=== PATIENT | male | born 1940 | race Caucasian/White ===

== ENCOUNTER 2017-06-21 11:30 | Inpatient (IN) | payer MEDICARE ==
[2017-06-21] MEDS: SOD CHLORIDE 0.9% 500 ML IV (11:32)
[2017-06-21] MEDS: morphine 2 MG INJ IV (12:44)
[2017-06-21] MEDS: ONDANSETRON 4 MG INJ IV (12:44)
[2017-06-21 12:49] LABS: ADD MAN DIFF? NO
[2017-06-21 12:50] LABS: WHITE BLOOD COUNT 9.6 10^3/ul (4.8-10.8)
[2017-06-21 12:50] LABS: BASOPHIL # 0.1 10^3/ul (0.0-0.1); BASOPHILS % 0.5 % (0.0-2.0); EOSINOPHILS # 0.2 10^3/ul (0.0-0.5); EOSINOPHILS % 1.9 % (0.0-7.0); HEMATOCRIT 37.6 % (42.0-52.0); HEMOGLOBIN 12.9 g/dl (14.0-18.0); LYMPHOCYTES # 1.5 10^3/ul (0.8-2.9); LYMPHOCYTES % 15.7 % (15.0-51.0); MEAN CORPUSCULAR HEMOGLOBIN 32.7 pg (29.0-33.0); MEAN CORPUSCULAR HGB CONC 34.3 g/dl (32.0-37.0); MEAN CORPUSCULAR VOLUME 95.2 fl (82.0-101.0); MEAN PLATELET VOLUME 10.5 fl (7.4-10.4); MONOCYTE # 0.9 10^3/ul (0.3-0.9); MONOCYTES % 9.1 % (0.0-11.0); NEUTROPHILS % 72.4 % (39.0-77.0); PLATELET COUNT 221 10^3/UL (140-415); RED BLOOD COUNT 3.95 10^6/ul (4.70-6.10); RED CELL DISTRIBUTION WIDTH 13.7 % (11.5-14.5)
[2017-06-21 13:06] LABS: ANION GAP 21 (8-16); BLOOD UREA NITROGEN 21 mg/dl (7-20); CALCIUM 9.5 mg/dl (8.4-10.2); CARBON DIOXIDE 20 mmol/L (21-31); CHLORIDE 104 mmol/L (97-110); CREATININE 1.34 mg/dl (0.61-1.24); GLUCOSE 121 mg/dl (70-220); POTASSIUM 4.1 mmol/L (3.5-5.1); SODIUM 141 mmol/L (135-144)
[2017-06-21 13:19] LABS: INR 0.99; PROTIME 13.2 Sec (11.9-14.9)
[2017-06-21 13:20] LABS: PARTIAL THROMBOPLASTIN TIME 28.6 Sec (25.0-35.0)
[2017-06-21] MEDS ORDERED: ONDANSETRON 4 MG INJ IV ×2 (13:30→18:00)
[2017-06-21] MEDS ORDERED: ACETAMINOPHEN 325 MG TAB PO ×2 (13:30→18:00)
[2017-06-21] MEDS ORDERED: MAGNESIUM HYDROXIDE 30ML CUP PO ×2 (18:00)
[2017-06-21] MEDS ORDERED: DOCUSATE SODIUM 100 MG CAP PO (18:00)
[2017-06-21] MEDS ORDERED: NACL 0.9% 3 ML SYG IV (18:00)
[2017-06-21] MEDS: ATORVASTATIN 80 MG TAB PO (22:41)
[2017-06-21] MEDS: FERROUS SULFATE (EC) 325 MG TAB PO (22:41)
[2017-06-22 04:46] LABS: ADD UMIC YES; UR ASCORBIC ACID NEGATIVE (NEGATIVE); UR BILIRUBIN (Dip) NEGATIVE (NEGATIVE); UR BLOOD (Dip) 2+ mg/dL (NEGATIVE); UR CLARITY SLIGHTLY CLOUDY (CLEAR); UR COLOR YELLOW (YELLOW); UR GLUCOSE (Dip) NEGATIVE (NEGATIVE); UR KETONES (Dip) NEGATIVE (NEGATIVE); UR LEUKOCYTE ESTERASE (Dip) NEGATIVE Leu/ul (NEGATIVE); UR NITRITE (Dip) NEGATIVE (NEGATIVE); UR RBC 0 /HPF (0-5); UR SPECIFIC GRAVITY (Dip) 1.014 (1.003-1.030); UR TOTAL PROTEIN (Dip) NEGATIVE (NEGATIVE); UR UROBILINOGEN (Dip) NEGATIVE (NEGATIVE); UR WBC 2 /HPF (0-5)
[2017-06-22 06:07] LABS: ADD MAN DIFF? NO
[2017-06-22 06:13] LABS: WHITE BLOOD COUNT 12.5 10^3/ul (4.8-10.8)
[2017-06-22 06:13] LABS: ABNORMAL IP MESSAGE 1; BASOPHILS % 0.2 % (0.0-2.0); HEMATOCRIT 31.1 % (42.0-52.0); HEMOGLOBIN 10.8 g/dl (14.0-18.0); LYMPHOCYTES % 8.1 % (15.0-51.0); MEAN CORPUSCULAR HEMOGLOBIN 32.5 pg (29.0-33.0); MEAN CORPUSCULAR HGB CONC 34.7 g/dl (32.0-37.0); MEAN CORPUSCULAR VOLUME 93.7 fl (82.0-101.0); MEAN PLATELET VOLUME 11.5 fl (7.4-10.4); MONOCYTE # 1.6 10^3/ul (0.3-0.9); MONOCYTES % 12.5 % (0.0-11.0); NEUTROPHIL # 9.9 10^3/ul (1.6-7.5); NEUTROPHILS % 78.9 % (39.0-77.0); PLATELET COUNT 195 10^3/UL (140-415); POSITIVE DIFF @See below; RED BLOOD COUNT 3.32 10^6/ul (4.70-6.10); RED CELL DISTRIBUTION WIDTH 14.2 % (11.5-14.5)
[2017-06-22] MEDS: PANTOPRAZOLE (EC) 40 MG TAB PO (06:24)
[2017-06-22] MEDS ORDERED: PANTOPRAZOLE (EC) 40 MG TAB PO (07:00)
[2017-06-22 07:07] LABS: ALANINE AMINOTRANSFERASE 42 IU/L (13-69); ALBUMIN 3.9 g/dl (3.3-4.9); ALBUMIN/GLOBULIN RATIO 1.39; ALKALINE PHOSPHATASE 93 IU/L (42-121); ANION GAP 19 (8-16); ASPARTATE AMINO TRANSFERASE 108 IU/L (15-46); BILIRUBIN,INDIRECT 0.4 mg/dl (0-1.1); BILIRUBIN,TOTAL 0.4 mg/dl (0.2-1.3); BLOOD UREA NITROGEN 24 mg/dl (7-20); CALCIUM 9.2 mg/dl (8.4-10.2); CARBON DIOXIDE 21 mmol/L (21-31); CHLORIDE 107 mmol/L (97-110); CHOL/HDL RATIO 2.5 RATIO; CHOLESTEROL 119 mg/dl (100-200); CREATININE 1.26 mg/dl (0.61-1.24); GLUCOSE 121 mg/dl (70-220); HDL CHOLESTEROL 47 mg/dl (31-75); LDL CHOLESTEROL,CALCULATED 59 mg/dl; SODIUM 143 mmol/L (135-144); TOTAL PROTEIN 6.7 g/dl (6.1-8.1); TRIGLYCERIDES 63 mg/dl (0-149)
[2017-06-22] MEDS: MULTIVITAMINS THERAPEUTIC TAB PO (08:47)
[2017-06-22] MEDS: FERROUS SULFATE (EC) 325 MG TAB PO ×2 (08:47→20:34)
[2017-06-22] MEDS: LISINOPRIL 10 MG TAB PO (08:48)
[2017-06-22] MEDS: ESCITALOPRAM 10 MG TAB PO (08:48)
[2017-06-22] MEDS: AMLODIPINE 5 MG TAB PO (08:49)
[2017-06-22] MEDS: ENOXAPARIN 40 MG/0.4 ML SYG SC (08:53)
[2017-06-22] MEDS: METOPROLOL 25 MG TAB PO ×2 (13:29→20:33)
[2017-06-22] MEDS: ATORVASTATIN 80 MG TAB PO (20:34)
[2017-06-23 05:57] LABS: ABNORMAL IP MESSAGE 1; HEMATOCRIT 26.9 % (42.0-52.0); HEMOGLOBIN 9.4 g/dl (14.0-18.0); MEAN CORPUSCULAR HEMOGLOBIN 32.9 pg (29.0-33.0); MEAN CORPUSCULAR HGB CONC 34.9 g/dl (32.0-37.0); MEAN CORPUSCULAR VOLUME 94.1 fl (82.0-101.0); MEAN PLATELET VOLUME 11.6 fl (7.4-10.4); PLATELET COUNT 159 10^3/UL (140-415); POSITIVE DIFF @See below; RED BLOOD COUNT 2.86 10^6/ul (4.70-6.10); RED CELL DISTRIBUTION WIDTH 14.5 % (11.5-14.5)
[2017-06-23 06:16] LABS: ANION GAP 18 (8-16); BLOOD UREA NITROGEN 39 mg/dl (7-20); CALCIUM 8.8 mg/dl (8.4-10.2); CARBON DIOXIDE 23 mmol/L (21-31); CHLORIDE 104 mmol/L (97-110); CREATININE 1.49 mg/dl (0.61-1.24); GLUCOSE 111 mg/dl (70-220); MAGNESIUM 1.9 mg/dl (1.7-2.5); PHOSPHORUS 4.3 mg/dl (2.5-4.9); POTASSIUM 3.7 mmol/L (3.5-5.1); SODIUM 141 mmol/L (135-144)
[2017-06-23] MEDS: PANTOPRAZOLE (EC) 40 MG TAB PO (06:25)
[2017-06-23 07:32] LABS: ADD MAN DIFF? NO
[2017-06-23 07:33] LABS: BASOPHILS % 0.1 % (0.0-2.0); LYMPHOCYTES % 9.5 % (15.0-51.0); MONOCYTES % 17.3 % (0.0-11.0); NEUTROPHILS % 72.7 % (39.0-77.0)
[2017-06-23] MEDS: ENOXAPARIN 40 MG/0.4 ML SYG SC (08:23)
[2017-06-23] MEDS: FERROUS SULFATE (EC) 325 MG TAB PO ×2 (09:37→20:32)
[2017-06-23] MEDS: ESCITALOPRAM 10 MG TAB PO (09:38)
[2017-06-23] MEDS: AMLODIPINE 5 MG TAB PO (09:39)
[2017-06-23] MEDS: MULTIVITAMINS THERAPEUTIC TAB PO (09:39)
[2017-06-23] MEDS: LISINOPRIL 10 MG TAB PO (09:39)
[2017-06-23] MEDS: METOPROLOL 25 MG TAB PO ×2 (09:39→20:32)
[2017-06-23] MEDS: ATORVASTATIN 80 MG TAB PO (20:32)
[2017-06-24 05:32] LABS: ADD MAN DIFF? NO
[2017-06-24 05:33] LABS: ABNORMAL IP MESSAGE 1; BASOPHILS % 0.1 % (0.0-2.0); HEMATOCRIT 26.5 % (42.0-52.0); HEMOGLOBIN 9.2 g/dl (14.0-18.0); LYMPHOCYTES # 1.3 10^3/ul (0.8-2.9); LYMPHOCYTES % 9.3 % (15.0-51.0); MEAN CORPUSCULAR HEMOGLOBIN 32.5 pg (29.0-33.0); MEAN CORPUSCULAR HGB CONC 34.7 g/dl (32.0-37.0); MEAN CORPUSCULAR VOLUME 93.6 fl (82.0-101.0); MEAN PLATELET VOLUME 11.5 fl (7.4-10.4); MONOCYTES % 14.5 % (0.0-11.0); NEUTROPHIL # 10.2 10^3/ul (1.6-7.5); NEUTROPHILS % 75.9 % (39.0-77.0); PLATELET COUNT 141 10^3/UL (140-415); POSITIVE DIFF @See below; RED BLOOD COUNT 2.83 10^6/ul (4.70-6.10); RED CELL DISTRIBUTION WIDTH 14.3 % (11.5-14.5)
[2017-06-24 05:33] LABS: WHITE BLOOD COUNT 13.5 10^3/ul (4.8-10.8)
[2017-06-24] MEDS: PANTOPRAZOLE (EC) 40 MG TAB PO (05:43)
[2017-06-24 06:11] LABS: ANION GAP 16 (8-16); BLOOD UREA NITROGEN 47 mg/dl (7-20); CALCIUM 8.6 mg/dl (8.4-10.2); CARBON DIOXIDE 25 mmol/L (21-31); CHLORIDE 102 mmol/L (97-110); CREATININE 1.49 mg/dl (0.61-1.24); GLUCOSE 102 mg/dl (70-220); PHOSPHORUS 4.3 mg/dl (2.5-4.9); POTASSIUM 3.7 mmol/L (3.5-5.1); SODIUM 139 mmol/L (135-144)
[2017-06-24] MEDS: METOPROLOL 25 MG TAB PO ×2 (09:37→21:00)
[2017-06-24] MEDS: ESCITALOPRAM 10 MG TAB PO (09:37)
[2017-06-24] MEDS: FERROUS SULFATE (EC) 325 MG TAB PO ×2 (09:37→20:54)
[2017-06-24] MEDS: MULTIVITAMINS THERAPEUTIC TAB PO (09:37)
[2017-06-24] MEDS: LISINOPRIL 10 MG TAB PO (09:38)
[2017-06-24] MEDS: AMLODIPINE 5 MG TAB PO (09:38)
[2017-06-24] MEDS: ACETAMINOPHEN 325 MG TAB PO (09:38)
[2017-06-24] MEDS: ENOXAPARIN 40 MG/0.4 ML SYG SC (09:39)
[2017-06-24] MEDS: ATORVASTATIN 80 MG TAB PO (20:54)
[2017-06-25] MEDS: HYDROCODONE/APAP (5/325) TAB PO (00:11)
[2017-06-25] MEDS: METOPROLOL 25 MG TAB PO ×3 (00:12→21:02)
[2017-06-25] MEDS: PANTOPRAZOLE (EC) 40 MG TAB PO (05:56)
[2017-06-25] MEDS: FERROUS SULFATE (EC) 325 MG TAB PO ×2 (08:56→21:02)
[2017-06-25] MEDS: ESCITALOPRAM 10 MG TAB PO (08:57)
[2017-06-25] MEDS: AMLODIPINE 5 MG TAB PO (08:58)
[2017-06-25] MEDS: MULTIVITAMINS THERAPEUTIC TAB PO (08:58)
[2017-06-25] MEDS: LISINOPRIL 10 MG TAB PO (08:59)
[2017-06-25] MEDS: ENOXAPARIN 40 MG/0.4 ML SYG SC (09:01)
[2017-06-25] MEDS: morphine 2 MG INJ IV (12:45)
[2017-06-25] MEDS: ATORVASTATIN 80 MG TAB PO (21:01)
[2017-06-26 05:16] LABS: ADD MAN DIFF? NO
[2017-06-26 05:26] LABS: WHITE BLOOD COUNT 11.5 10^3/ul (4.8-10.8)
[2017-06-26 05:26] LABS: BASOPHILS % 0.1 % (0.0-2.0); EOSINOPHILS % 0.1 % (0.0-7.0); HEMATOCRIT 25.9 % (42.0-52.0); HEMOGLOBIN 8.9 g/dl (14.0-18.0); LYMPHOCYTES % 8.4 % (15.0-51.0); MEAN CORPUSCULAR HEMOGLOBIN 32.4 pg (29.0-33.0); MEAN CORPUSCULAR HGB CONC 34.4 g/dl (32.0-37.0); MEAN CORPUSCULAR VOLUME 94.2 fl (82.0-101.0); MEAN PLATELET VOLUME 12.2 fl (7.4-10.4); MONOCYTE # 1.4 10^3/ul (0.3-0.9); MONOCYTES % 12.4 % (0.0-11.0); NEUTROPHILS % 78.6 % (39.0-77.0); PLATELET COUNT 189 10^3/UL (140-415); RED BLOOD COUNT 2.75 10^6/ul (4.70-6.10); RED CELL DISTRIBUTION WIDTH 14.5 % (11.5-14.5)
[2017-06-26] MEDS: PANTOPRAZOLE (EC) 40 MG TAB PO (05:39)
[2017-06-26] MEDS: HYDROCODONE/APAP (5/325) TAB PO ×2 (05:40→12:33)
[2017-06-26 05:51] LABS: ANION GAP 17 (8-16); BLOOD UREA NITROGEN 48 mg/dl (7-20); CALCIUM 8.4 mg/dl (8.4-10.2); CARBON DIOXIDE 22 mmol/L (21-31); CHLORIDE 104 mmol/L (97-110); CREATININE 1.41 mg/dl (0.61-1.24); GLUCOSE 96 mg/dl (70-220); MAGNESIUM 2.3 mg/dl (1.7-2.5); PHOSPHORUS 3.4 mg/dl (2.5-4.9); POTASSIUM 3.4 mmol/L (3.5-5.1); SODIUM 140 mmol/L (135-144)
[2017-06-26] MEDS: AMLODIPINE 5 MG TAB PO (08:14)
[2017-06-26] MEDS: LISINOPRIL 10 MG TAB PO (08:14)
[2017-06-26] MEDS: METOPROLOL 25 MG TAB PO ×2 (08:14→22:34)
[2017-06-26] MEDS: ESCITALOPRAM 10 MG TAB PO (08:30)
[2017-06-26] MEDS: FERROUS SULFATE (EC) 325 MG TAB PO ×2 (08:30→22:33)
[2017-06-26] MEDS: POTASSIUM CHLORIDE (SR) 20 MEQ TAB PO (08:30)
[2017-06-26] MEDS: MULTIVITAMINS THERAPEUTIC TAB PO (08:30)
[2017-06-26] MEDS: ENOXAPARIN 40 MG/0.4 ML SYG SC (08:32)
[2017-06-26] MEDS: morphine 2 MG INJ IV (12:00)
[2017-06-26] MEDS: CEFEPIME 1GM/50 ML (PMX) 50 ML IVPB (12:33)
[2017-06-26 17:20] LABS: IMMEDIATE SPIN CROSSMATCH 1 3
[2017-06-26 22:33] LABS: ADD MAN DIFF? NO
[2017-06-26] MEDS: ATORVASTATIN 80 MG TAB PO (22:33)
[2017-06-26 22:35] LABS: ABNORMAL IP MESSAGE 1; BASOPHILS % 0.2 % (0.0-2.0); EOSINOPHILS % 0.3 % (0.0-7.0); HEMATOCRIT 33.1 % (42.0-52.0); HEMOGLOBIN 11.2 g/dl (14.0-18.0); LYMPHOCYTES # 1.1 10^3/ul (0.8-2.9); LYMPHOCYTES % 9.1 % (15.0-51.0); MEAN CORPUSCULAR HEMOGLOBIN 30.7 pg (29.0-33.0); MEAN CORPUSCULAR HGB CONC 33.8 g/dl (32.0-37.0); MEAN CORPUSCULAR VOLUME 90.7 fl (82.0-101.0); MEAN PLATELET VOLUME 11.8 fl (7.4-10.4); MONOCYTE # 1.6 10^3/ul (0.3-0.9); MONOCYTES % 13.7 % (0.0-11.0); NEUTROPHIL # 9.1 10^3/ul (1.6-7.5); NEUTROPHILS % 76.4 % (39.0-77.0); PLATELET COUNT 179 10^3/UL (140-415); POSITIVE DIFF @See below; RED BLOOD COUNT 3.65 10^6/ul (4.70-6.10); RED CELL DISTRIBUTION WIDTH 16.5 % (11.5-14.5)
[2017-06-26 22:35] LABS: WHITE BLOOD COUNT 11.9 10^3/ul (4.8-10.8)
[2017-06-26] MEDS: BALSAM PERU/CASTOR OIL 60 GM TUBE TOP (22:35)
[2017-06-26] MEDS: NYSTATIN 30 GM POWDER BTL TOP (22:35)
[2017-06-27 05:13] LABS: ADD MAN DIFF? NO
[2017-06-27 05:17] LABS: ABNORMAL IP MESSAGE 1; BASOPHILS % 0.1 % (0.0-2.0); EOSINOPHILS % 0.2 % (0.0-7.0); HEMATOCRIT 32.9 % (42.0-52.0); HEMOGLOBIN 11.4 g/dl (14.0-18.0); LYMPHOCYTES # 1.1 10^3/ul (0.8-2.9); LYMPHOCYTES % 9.2 % (15.0-51.0); MEAN CORPUSCULAR HGB CONC 34.7 g/dl (32.0-37.0); MEAN CORPUSCULAR VOLUME 89.4 fl (82.0-101.0); MEAN PLATELET VOLUME 12.2 fl (7.4-10.4); MONOCYTE # 1.6 10^3/ul (0.3-0.9); MONOCYTES % 13.5 % (0.0-11.0); NEUTROPHIL # 9.2 10^3/ul (1.6-7.5); NEUTROPHILS % 76.7 % (39.0-77.0); PLATELET COUNT 182 10^3/UL (140-415); POSITIVE DIFF @See below; RED BLOOD COUNT 3.68 10^6/ul (4.70-6.10); RED CELL DISTRIBUTION WIDTH 16.5 % (11.5-14.5)
[2017-06-27 05:42] LABS: ANION GAP 15 (8-16); BLOOD UREA NITROGEN 44 mg/dl (7-20); CALCIUM 8.6 mg/dl (8.4-10.2); CARBON DIOXIDE 22 mmol/L (21-31); CHLORIDE 107 mmol/L (97-110); CREATININE 1.32 mg/dl (0.61-1.24); GLUCOSE 96 mg/dl (70-220); MAGNESIUM 2.3 mg/dl (1.7-2.5); PHOSPHORUS 3.2 mg/dl (2.5-4.9); SODIUM 140 mmol/L (135-144)
[2017-06-27] MEDS: PANTOPRAZOLE (EC) 40 MG TAB PO (06:26)
[2017-06-27] MEDS ORDERED: CEFAZOLIN 1 GM INJ (07:00)
[2017-06-27] MEDS ORDERED: SUCCINYLCHOLINE CHLORIDE 100 MG/5 ML SYG IV (07:00)
[2017-06-27] MEDS: morphine 2 MG INJ IV ×3 (07:33→18:23)
[2017-06-27] MEDS: FERROUS SULFATE (EC) 325 MG TAB PO ×2 (08:00→21:07)
[2017-06-27] MEDS: ENOXAPARIN 40 MG/0.4 ML SYG SC (08:01)
[2017-06-27] MEDS: ESCITALOPRAM 10 MG TAB PO (08:01)
[2017-06-27] MEDS: MULTIVITAMINS THERAPEUTIC TAB PO (08:01)
[2017-06-27] MEDS: NYSTATIN 30 GM POWDER BTL TOP ×2 (08:17→21:08)
[2017-06-27] MEDS: BALSAM PERU/CASTOR OIL 60 GM TUBE TOP ×2 (08:17→21:09)
[2017-06-27] MEDS: METOPROLOL 25 MG TAB PO ×2 (08:20→21:08)
[2017-06-27] MEDS: AMLODIPINE 5 MG TAB PO (08:20)
[2017-06-27] MEDS: LISINOPRIL 10 MG TAB PO (08:20)
[2017-06-27] MEDS: CEFEPIME 1GM/50 ML (PMX) 50 ML IVPB (11:26)
[2017-06-27] MEDS ORDERED: LIDOCAINE 2% (SDV) 5 ML INJ (13:50)
[2017-06-27] MEDS ORDERED: GLYCOPYRROLATE 0.4 MG INJ (13:50)
[2017-06-27] MEDS ORDERED: MIDAZOLAM 1 MG/ML 2 ML INJ (13:51)
[2017-06-27] MEDS ORDERED: FENTAnyl 50 MCG/ML VIAL (13:51)
[2017-06-27] MEDS ORDERED: DEXAMETHASONE 4 MG/ML 1 ML INJ (13:51)
[2017-06-27] MEDS ORDERED: ONDANSETRON 4 MG INJ (13:51)
[2017-06-27] MEDS ORDERED: ROCURONIUM 50 MG INJ (13:51)
[2017-06-27] MEDS ORDERED: NEOSTIGMINE 3 MG/3 ML SYRINGE (13:51)
[2017-06-27] MEDS ORDERED: PROPOFOL 20 ML (13:51)
[2017-06-27] MEDS: POLYMYXIN/BACITRACIN 1L IRRIG (15:00)
[2017-06-27] MEDS ORDERED: NACL 0.9% 3 ML SYG IV (16:30)
[2017-06-27] MEDS ORDERED: CEFAZOLIN 1 GM/50 ML (PMX) 50 ML IVPB (16:30)
[2017-06-27] MEDS: SOD CHLORIDE 0.9% 1,000 ML IV (18:29)
[2017-06-27] MEDS: ATORVASTATIN 80 MG TAB PO (21:07)
[2017-06-28] MEDS: SOD CHLORIDE 0.9% 1,000 ML IV ×2 (04:57→05:30)
[2017-06-28] MEDS: morphine 2 MG INJ IV (05:30)
[2017-06-28] MEDS: PANTOPRAZOLE (EC) 40 MG TAB PO (05:35)
[2017-06-28 05:43] LABS: ADD MAN DIFF? NO
[2017-06-28 05:50] LABS: BASOPHILS % 0.1 % (0.0-2.0); HEMATOCRIT 32.7 % (42.0-52.0); HEMOGLOBIN 11.1 g/dl (14.0-18.0); LYMPHOCYTES # 0.6 10^3/ul (0.8-2.9); LYMPHOCYTES % 4.8 % (15.0-51.0); MEAN CORPUSCULAR HGB CONC 33.9 g/dl (32.0-37.0); MEAN CORPUSCULAR VOLUME 91.3 fl (82.0-101.0); MEAN PLATELET VOLUME 11.2 fl (7.4-10.4); MONOCYTE # 1.1 10^3/ul (0.3-0.9); MONOCYTES % 8.4 % (0.0-11.0); NEUTROPHIL # 10.8 10^3/ul (1.6-7.5); NEUTROPHILS % 86.2 % (39.0-77.0); PLATELET COUNT 197 10^3/UL (140-415); RED BLOOD COUNT 3.58 10^6/ul (4.70-6.10); RED CELL DISTRIBUTION WIDTH 16.2 % (11.5-14.5)
[2017-06-28 05:50] LABS: WHITE BLOOD COUNT 12.5 10^3/ul (4.8-10.8)
[2017-06-28 06:06] LABS: INR 1.19; PROTIME 15.3 Sec (11.9-14.9); PT RATIO 1.2
[2017-06-28 06:08] LABS: ANION GAP 15 (8-16); BLOOD UREA NITROGEN 37 mg/dl (7-20); CALCIUM 8.7 mg/dl (8.4-10.2); CARBON DIOXIDE 25 mmol/L (21-31); CHLORIDE 110 mmol/L (97-110); CREATININE 1.09 mg/dl (0.61-1.24); GLUCOSE 110 mg/dl (70-220); MAGNESIUM 2.2 mg/dl (1.7-2.5); PHOSPHORUS 4.3 mg/dl (2.5-4.9); POTASSIUM 4.8 mmol/L (3.5-5.1); SODIUM 145 mmol/L (135-144)
[2017-06-28] MEDS: FERROUS SULFATE (EC) 325 MG TAB PO ×2 (08:36→21:20)
[2017-06-28] MEDS: ESCITALOPRAM 10 MG TAB PO (08:37)
[2017-06-28] MEDS: METOPROLOL 25 MG TAB PO ×2 (08:37→21:24)
[2017-06-28] MEDS: AMLODIPINE 5 MG TAB PO (08:38)
[2017-06-28] MEDS: MULTIVITAMINS THERAPEUTIC TAB PO (08:38)
[2017-06-28] MEDS: LISINOPRIL 10 MG TAB PO (08:39)
[2017-06-28] MEDS: ENOXAPARIN 40 MG/0.4 ML SYG SC (08:40)
[2017-06-28] MEDS: NYSTATIN 30 GM POWDER BTL TOP ×2 (08:41→21:24)
[2017-06-28] MEDS: BALSAM PERU/CASTOR OIL 60 GM TUBE TOP ×2 (08:42→21:24)
[2017-06-28] MEDS: CEFEPIME 1GM/50 ML (PMX) 50 ML IVPB (12:05)
[2017-06-28] MEDS: HYDROCODONE/APAP (5/325) TAB PO (13:17)
[2017-06-28] MEDS: ATORVASTATIN 80 MG TAB PO (21:22)
[2017-06-29 05:39] LABS: ADD MAN DIFF? NO
[2017-06-29 05:44] LABS: WHITE BLOOD COUNT 14.7 10^3/ul (4.8-10.8)
[2017-06-29 05:44] LABS: ABNORMAL IP MESSAGE 1; BASOPHILS % 0.1 % (0.0-2.0); EOSINOPHILS % 0.3 % (0.0-7.0); HEMATOCRIT 33.3 % (42.0-52.0); LYMPHOCYTES # 1.5 10^3/ul (0.8-2.9); LYMPHOCYTES % 10.5 % (15.0-51.0); MEAN CORPUSCULAR HEMOGLOBIN 30.5 pg (29.0-33.0); MEAN CORPUSCULAR VOLUME 92.2 fl (82.0-101.0); MEAN PLATELET VOLUME 11.5 fl (7.4-10.4); MONOCYTE # 1.7 10^3/ul (0.3-0.9); MONOCYTES % 11.5 % (0.0-11.0); NEUTROPHIL # 11.3 10^3/ul (1.6-7.5); NEUTROPHILS % 76.8 % (39.0-77.0); PLATELET COUNT 226 10^3/UL (140-415); POSITIVE DIFF @See below; RED BLOOD COUNT 3.61 10^6/ul (4.70-6.10); RED CELL DISTRIBUTION WIDTH 16.2 % (11.5-14.5)
[2017-06-29] MEDS: morphine 2 MG INJ IV (05:59)
[2017-06-29] MEDS: PANTOPRAZOLE (EC) 40 MG TAB PO (05:59)
[2017-06-29 06:12] LABS: ANION GAP 14 (8-16); BLOOD UREA NITROGEN 40 mg/dl (7-20); CALCIUM 8.4 mg/dl (8.4-10.2); CARBON DIOXIDE 24 mmol/L (21-31); CHLORIDE 107 mmol/L (97-110); GLUCOSE 88 mg/dl (70-220); MAGNESIUM 2.1 mg/dl (1.7-2.5); PHOSPHORUS 2.4 mg/dl (2.5-4.9); SODIUM 141 mmol/L (135-144)
[2017-06-29 06:16] LABS: INR 1.09; PROTIME 14.2 Sec (11.9-14.9); PT RATIO 1.1
[2017-06-29] MEDS: MULTIVITAMINS THERAPEUTIC TAB PO (09:13)
[2017-06-29] MEDS: LISINOPRIL 10 MG TAB PO (09:13)
[2017-06-29] MEDS: FERROUS SULFATE (EC) 325 MG TAB PO ×2 (09:13→20:10)
[2017-06-29] MEDS: AMLODIPINE 5 MG TAB PO (09:14)
[2017-06-29] MEDS: ESCITALOPRAM 10 MG TAB PO (09:14)
[2017-06-29] MEDS: NYSTATIN 30 GM POWDER BTL TOP ×2 (09:15→20:08)
[2017-06-29] MEDS: METOPROLOL 25 MG TAB PO ×2 (09:15→20:09)
[2017-06-29] MEDS: BALSAM PERU/CASTOR OIL 60 GM TUBE TOP ×2 (09:15→20:09)
[2017-06-29] MEDS: ENOXAPARIN 40 MG/0.4 ML SYG SC (09:23)
[2017-06-29] MEDS ORDERED: VANCOMYCIN IV PER PHARMACY XX (10:00)
[2017-06-29] MEDS: VANCOMYCIN 1 GM 250 ML IVPB (10:33)
[2017-06-29] MEDS: NEUTRA-PHOS 250 MG PACKET PO (10:33)
[2017-06-29] MEDS: MEROPENEM 1 GM/50ML(PMX) 50 ML IVPB ×3 (11:03→21:13)
[2017-06-29] MEDS: HYDROCODONE/APAP (5/325) TAB PO (20:13)
[2017-06-29] MEDS: ATORVASTATIN 80 MG TAB PO (20:13)
[2017-06-30] MEDS: HYDROCODONE/APAP (5/325) TAB PO ×2 (03:45→20:49)
[2017-06-30 05:39] LABS: ADD MAN DIFF? NO
[2017-06-30 05:43] LABS: ABNORMAL IP MESSAGE 1; BASOPHILS % 0.1 % (0.0-2.0); EOSINOPHILS # 0.2 10^3/ul (0.0-0.5); EOSINOPHILS % 1.7 % (0.0-7.0); HEMATOCRIT 32.1 % (42.0-52.0); HEMOGLOBIN 10.9 g/dl (14.0-18.0); LYMPHOCYTES # 1.1 10^3/ul (0.8-2.9); LYMPHOCYTES % 8.4 % (15.0-51.0); MEAN CORPUSCULAR HEMOGLOBIN 31.1 pg (29.0-33.0); MEAN CORPUSCULAR VOLUME 91.5 fl (82.0-101.0); MEAN PLATELET VOLUME 11.7 fl (7.4-10.4); MONOCYTE # 1.8 10^3/ul (0.3-0.9); MONOCYTES % 13.1 % (0.0-11.0); NEUTROPHIL # 10.2 10^3/ul (1.6-7.5); NEUTROPHILS % 75.9 % (39.0-77.0); PLATELET COUNT 224 10^3/UL (140-415); POSITIVE DIFF @See below; RED BLOOD COUNT 3.51 10^6/ul (4.70-6.10); RED CELL DISTRIBUTION WIDTH 15.8 % (11.5-14.5)
[2017-06-30 05:43] LABS: WHITE BLOOD COUNT 13.4 10^3/ul (4.8-10.8)
[2017-06-30] MEDS: PANTOPRAZOLE (EC) 40 MG TAB PO (05:51)
[2017-06-30 06:05] LABS: INR 1.04; PROTIME 13.7 Sec (11.9-14.9); PT RATIO 1.1
[2017-06-30 06:37] LABS: ANION GAP 13 (8-16); BLOOD UREA NITROGEN 39 mg/dl (7-20); CALCIUM 8.3 mg/dl (8.4-10.2); CARBON DIOXIDE 23 mmol/L (21-31); CHLORIDE 107 mmol/L (97-110); CREATININE 1.09 mg/dl (0.61-1.24); GLUCOSE 93 mg/dl (70-220); MAGNESIUM 2.1 mg/dl (1.7-2.5); PHOSPHORUS 2.3 mg/dl (2.5-4.9); POTASSIUM 4.1 mmol/L (3.5-5.1); SODIUM 139 mmol/L (135-144)
[2017-06-30] MEDS: MULTIVITAMINS THERAPEUTIC TAB PO (09:21)
[2017-06-30] MEDS: METOPROLOL 25 MG TAB PO ×2 (09:23→20:49)
[2017-06-30] MEDS: FERROUS SULFATE (EC) 325 MG TAB PO ×2 (09:23→20:49)
[2017-06-30] MEDS: LISINOPRIL 10 MG TAB PO (09:24)
[2017-06-30] MEDS: AMLODIPINE 5 MG TAB PO (09:25)
[2017-06-30] MEDS: MEROPENEM 1 GM/50ML(PMX) 50 ML IVPB ×2 (09:25→20:48)
[2017-06-30] MEDS: ESCITALOPRAM 10 MG TAB PO (09:25)
[2017-06-30] MEDS: ENOXAPARIN 40 MG/0.4 ML SYG SC (09:27)
[2017-06-30] MEDS: BALSAM PERU/CASTOR OIL 60 GM TUBE TOP ×2 (09:31→20:50)
[2017-06-30] MEDS: NYSTATIN 30 GM POWDER BTL TOP ×2 (09:31→20:50)
[2017-06-30] MEDS: VANCOMYCIN 1 GM 250 ML IVPB (10:43)
[2017-06-30] MEDS: ATORVASTATIN 80 MG TAB PO (20:48)
[2017-06-30] MEDS: morphine 2 MG INJ IV (22:46)
[2017-07-01 05:49] LABS: INR 1.13; PROTIME 14.7 Sec (11.9-14.9); PT RATIO 1.1
[2017-07-01] MEDS: PANTOPRAZOLE (EC) 40 MG TAB PO (06:07)
[2017-07-01] MEDS: morphine 2 MG INJ IV (08:42)
[2017-07-01] MEDS: ESCITALOPRAM 10 MG TAB PO (08:44)
[2017-07-01] MEDS: FERROUS SULFATE (EC) 325 MG TAB PO ×2 (08:44→21:10)
[2017-07-01] MEDS: CLOPIDOGREL 75 MG TAB PO (08:45)
[2017-07-01] MEDS: METOPROLOL 25 MG TAB PO ×2 (08:46→21:10)
[2017-07-01] MEDS: MULTIVITAMINS THERAPEUTIC TAB PO (08:46)
[2017-07-01] MEDS: LISINOPRIL 10 MG TAB PO (08:46)
[2017-07-01] MEDS: AMLODIPINE 5 MG TAB PO (08:47)
[2017-07-01] MEDS: BALSAM PERU/CASTOR OIL 60 GM TUBE TOP ×2 (08:48→21:11)
[2017-07-01] MEDS: NYSTATIN 30 GM POWDER BTL TOP ×2 (08:48→21:11)
[2017-07-01] MEDS: ENOXAPARIN 40 MG/0.4 ML SYG SC (08:49)
[2017-07-01] MEDS: MEROPENEM 1 GM/50ML(PMX) 50 ML IVPB ×2 (08:50→21:10)
[2017-07-01] MEDS: NEUTRA-PHOS 250 MG PACKET PO ×2 (10:43→21:11)
[2017-07-01] MEDS: VANCOMYCIN 1 GM 250 ML IVPB (10:43)
[2017-07-01] MEDS: ALBUTEROL/IPRATROPIUM (NEB) 3 ML AMP HHN (18:02)
[2017-07-01] MEDS: ATORVASTATIN 80 MG TAB PO (21:10)
[2017-07-01] MEDS: HYDROCODONE/APAP (5/325) TAB PO (21:18)
[2017-07-02 05:07] LABS: ADD MAN DIFF? NO
[2017-07-02 05:13] LABS: WHITE BLOOD COUNT 11.3 10^3/ul (4.8-10.8)
[2017-07-02 05:13] LABS: ABNORMAL IP MESSAGE 1; BASOPHILS % 0.3 % (0.0-2.0); EOSINOPHILS # 0.2 10^3/ul (0.0-0.5); HEMATOCRIT 31.5 % (42.0-52.0); HEMOGLOBIN 10.5 g/dl (14.0-18.0); LYMPHOCYTES # 1.4 10^3/ul (0.8-2.9); MEAN CORPUSCULAR HEMOGLOBIN 30.3 pg (29.0-33.0); MEAN CORPUSCULAR HGB CONC 33.3 g/dl (32.0-37.0); MEAN PLATELET VOLUME 11.9 fl (7.4-10.4); MONOCYTE # 1.6 10^3/ul (0.3-0.9); MONOCYTES % 14.2 % (0.0-11.0); NEUTROPHILS % 70.6 % (39.0-77.0); PLATELET COUNT 245 10^3/UL (140-415); POSITIVE DIFF @See below; RED BLOOD COUNT 3.46 10^6/ul (4.70-6.10); RED CELL DISTRIBUTION WIDTH 15.8 % (11.5-14.5)
[2017-07-02 05:31] LABS: INR 1.09; PROTIME 14.3 Sec (11.9-14.9); PT RATIO 1.1
[2017-07-02 05:53] LABS: ANION GAP 14 (8-16); BLOOD UREA NITROGEN 38 mg/dl (7-20); CALCIUM 8.5 mg/dl (8.4-10.2); CARBON DIOXIDE 24 mmol/L (21-31); CHLORIDE 110 mmol/L (97-110); GLUCOSE 90 mg/dl (70-220); MAGNESIUM 2.1 mg/dl (1.7-2.5); PHOSPHORUS 3.2 mg/dl (2.5-4.9); POTASSIUM 3.9 mmol/L (3.5-5.1); SODIUM 144 mmol/L (135-144)
[2017-07-02] MEDS: PANTOPRAZOLE (EC) 40 MG TAB PO (06:04)
[2017-07-02] MEDS: MEROPENEM 1 GM/50ML(PMX) 50 ML IVPB ×2 (09:13→20:42)
[2017-07-02] MEDS: ESCITALOPRAM 10 MG TAB PO (09:14)
[2017-07-02] MEDS: MULTIVITAMINS THERAPEUTIC TAB PO (09:14)
[2017-07-02] MEDS: LISINOPRIL 10 MG TAB PO (09:14)
[2017-07-02] MEDS: AMLODIPINE 5 MG TAB PO (09:14)
[2017-07-02] MEDS: NEUTRA-PHOS 250 MG PACKET PO ×2 (09:14→20:38)
[2017-07-02] MEDS: METOPROLOL 25 MG TAB PO ×2 (09:14→20:39)
[2017-07-02] MEDS: CLOPIDOGREL 75 MG TAB PO (09:14)
[2017-07-02] MEDS: FERROUS SULFATE (EC) 325 MG TAB PO ×2 (09:14→20:44)
[2017-07-02] MEDS: NYSTATIN 30 GM POWDER BTL TOP ×2 (09:15→20:43)
[2017-07-02] MEDS: BALSAM PERU/CASTOR OIL 60 GM TUBE TOP ×2 (09:15→20:43)
[2017-07-02] MEDS: FUROSEMIDE 20 MG TAB PO (09:16)
[2017-07-02] MEDS: ENOXAPARIN 40 MG/0.4 ML SYG SC (09:25)
[2017-07-02 09:43] LABS: VANCOMYCIN,TROUGH 11.6 ug/ml (10.0-20.0)
[2017-07-02] MEDS: VANCOMYCIN 1 GM 250 ML IVPB (10:45)
[2017-07-02] MEDS ORDERED: morphine LIQ (10 MG/5 ML) CUP PO (15:30)
[2017-07-02] MEDS: ATORVASTATIN 80 MG TAB PO (20:38)
[2017-07-02] MEDS: HYDROCODONE/APAP (5/325) TAB PO (20:43)
[2017-07-03 05:20] LABS: ADD MAN DIFF? NO
[2017-07-03 05:26] LABS: WHITE BLOOD COUNT 11.9 10^3/ul (4.8-10.8)
[2017-07-03 05:26] LABS: ABNORMAL IP MESSAGE 1; BASOPHILS % 0.3 % (0.0-2.0); EOSINOPHILS # 0.3 10^3/ul (0.0-0.5); EOSINOPHILS % 2.7 % (0.0-7.0); HEMATOCRIT 31.6 % (42.0-52.0); HEMOGLOBIN 10.6 g/dl (14.0-18.0); LYMPHOCYTES # 1.5 10^3/ul (0.8-2.9); LYMPHOCYTES % 12.7 % (15.0-51.0); MEAN CORPUSCULAR HEMOGLOBIN 30.5 pg (29.0-33.0); MEAN CORPUSCULAR HGB CONC 33.5 g/dl (32.0-37.0); MEAN CORPUSCULAR VOLUME 91.1 fl (82.0-101.0); MEAN PLATELET VOLUME 11.5 fl (7.4-10.4); MONOCYTE # 1.5 10^3/ul (0.3-0.9); MONOCYTES % 12.9 % (0.0-11.0); NEUTROPHIL # 8.4 10^3/ul (1.6-7.5); NEUTROPHILS % 70.6 % (39.0-77.0); PLATELET COUNT 266 10^3/UL (140-415); POSITIVE DIFF @See below; RED BLOOD COUNT 3.47 10^6/ul (4.70-6.10); RED CELL DISTRIBUTION WIDTH 15.9 % (11.5-14.5)
[2017-07-03] MEDS: PANTOPRAZOLE (EC) 40 MG TAB PO (05:31)
[2017-07-03] MEDS: HYDROCODONE/APAP (5/325) TAB PO ×3 (05:31→21:07)
[2017-07-03 05:43] LABS: INR 1.08; PROTIME 14.1 Sec (11.9-14.9); PT RATIO 1.1
[2017-07-03 06:33] LABS: ANION GAP 14 (8-16); BLOOD UREA NITROGEN 40 mg/dl (7-20); CALCIUM 8.5 mg/dl (8.4-10.2); CARBON DIOXIDE 25 mmol/L (21-31); CHLORIDE 109 mmol/L (97-110); CREATININE 1.15 mg/dl (0.61-1.24); GLUCOSE 91 mg/dl (70-220); MAGNESIUM 2.3 mg/dl (1.7-2.5); PHOSPHORUS 3.4 mg/dl (2.5-4.9); POTASSIUM 4.1 mmol/L (3.5-5.1); SODIUM 144 mmol/L (135-144)
[2017-07-03] MEDS: NEUTRA-PHOS 250 MG PACKET PO ×2 (09:25→21:03)
[2017-07-03] MEDS: CLOPIDOGREL 75 MG TAB PO (09:25)
[2017-07-03] MEDS: FERROUS SULFATE (EC) 325 MG TAB PO ×2 (09:25→21:03)
[2017-07-03] MEDS: MULTIVITAMINS THERAPEUTIC TAB PO (09:25)
[2017-07-03] MEDS: ESCITALOPRAM 10 MG TAB PO (09:25)
[2017-07-03] MEDS: FUROSEMIDE 20 MG TAB PO (09:26)
[2017-07-03] MEDS: METOPROLOL 25 MG TAB PO ×2 (09:26→21:03)
[2017-07-03] MEDS: LISINOPRIL 10 MG TAB PO (09:26)
[2017-07-03] MEDS: AMLODIPINE 5 MG TAB PO (09:27)
[2017-07-03] MEDS: ENOXAPARIN 40 MG/0.4 ML SYG SC (09:29)
[2017-07-03] MEDS: NYSTATIN 30 GM POWDER BTL TOP ×2 (09:31→21:03)
[2017-07-03] MEDS: BALSAM PERU/CASTOR OIL 60 GM TUBE TOP ×2 (09:31→21:03)
[2017-07-03] MEDS: MEROPENEM 1 GM/50ML(PMX) 50 ML IVPB ×2 (09:34→21:00)
[2017-07-03] MEDS: VANCOMYCIN 1.25 GM in SOD CHLORIDE 0.9% 250 ML IVPB (11:19)
[2017-07-03] MEDS: ATORVASTATIN 80 MG TAB PO (21:03)
[2017-07-04] MEDS: PANTOPRAZOLE (EC) 40 MG TAB PO (05:48)
[2017-07-04 06:04] LABS: INR 1.02; PROTIME 13.5 Sec (11.9-14.9); PT RATIO 1.1
[2017-07-04] MEDS: LISINOPRIL 10 MG TAB PO (09:50)
[2017-07-04] MEDS: MULTIVITAMINS THERAPEUTIC TAB PO (09:50)
[2017-07-04] MEDS: NEUTRA-PHOS 250 MG PACKET PO ×2 (09:50→20:43)
[2017-07-04] MEDS: ESCITALOPRAM 10 MG TAB PO (09:51)
[2017-07-04] MEDS: METOPROLOL 25 MG TAB PO ×2 (09:51→20:43)
[2017-07-04] MEDS: FERROUS SULFATE (EC) 325 MG TAB PO ×2 (09:51→20:42)
[2017-07-04] MEDS: CLOPIDOGREL 75 MG TAB PO (09:52)
[2017-07-04] MEDS: HYDROCODONE/APAP (5/325) TAB PO (09:52)
[2017-07-04] MEDS: AMLODIPINE 5 MG TAB PO (09:52)
[2017-07-04] MEDS: FUROSEMIDE 20 MG TAB PO (09:52)
[2017-07-04] MEDS: BALSAM PERU/CASTOR OIL 60 GM TUBE TOP ×2 (09:55→20:44)
[2017-07-04] MEDS: ENOXAPARIN 40 MG/0.4 ML SYG SC (09:55)
[2017-07-04] MEDS: NYSTATIN 30 GM POWDER BTL TOP ×2 (09:55→20:44)
[2017-07-04] MEDS: MEROPENEM 1 GM/50ML(PMX) 50 ML IVPB ×2 (09:56→20:42)
[2017-07-04] MEDS: VANCOMYCIN 1.25 GM in SOD CHLORIDE 0.9% 250 ML IVPB (11:38)
[2017-07-04] MEDS: ATORVASTATIN 80 MG TAB PO (20:43)
[2017-07-05] MEDS: PANTOPRAZOLE (EC) 40 MG TAB PO (05:58)
[2017-07-05] MEDS: FERROUS SULFATE (EC) 325 MG TAB PO ×2 (09:34→21:23)
[2017-07-05] MEDS: MEROPENEM 1 GM/50ML(PMX) 50 ML IVPB (09:34)
[2017-07-05] MEDS: FUROSEMIDE 20 MG TAB PO (09:35)
[2017-07-05] MEDS: ESCITALOPRAM 10 MG TAB PO (09:35)
[2017-07-05] MEDS: METOPROLOL 25 MG TAB PO ×2 (09:36→21:25)
[2017-07-05] MEDS: NEUTRA-PHOS 250 MG PACKET PO ×2 (09:36→21:23)
[2017-07-05] MEDS: MULTIVITAMINS THERAPEUTIC TAB PO (09:36)
[2017-07-05] MEDS: CLOPIDOGREL 75 MG TAB PO (09:36)
[2017-07-05] MEDS: AMLODIPINE 5 MG TAB PO (09:36)
[2017-07-05] MEDS: LISINOPRIL 10 MG TAB PO (09:37)
[2017-07-05] MEDS: BALSAM PERU/CASTOR OIL 60 GM TUBE TOP ×2 (09:37→21:24)
[2017-07-05] MEDS: NYSTATIN 30 GM POWDER BTL TOP ×2 (09:37→21:23)
[2017-07-05] MEDS: ENOXAPARIN 40 MG/0.4 ML SYG SC (09:38)
[2017-07-05] MEDS: HYDROCODONE/APAP (5/325) TAB PO (09:40)
[2017-07-05] MEDS: VANCOMYCIN 1.25 GM in SOD CHLORIDE 0.9% 250 ML IVPB (10:26)
[2017-07-05] MEDS: ATORVASTATIN 80 MG TAB PO (21:23)
[2017-07-05] MEDS: COLLAGENASE 30 GM TUBE TOP (21:24)
[2017-07-05] MEDS: CEFEPIME 1GM/50 ML (PMX) 50 ML IVPB (21:27)
[2017-07-06 05:30] LABS: ADD MAN DIFF? NO
[2017-07-06 05:46] LABS: WHITE BLOOD COUNT 13.7 10^3/ul (4.8-10.8)
[2017-07-06 05:46] LABS: ABNORMAL IP MESSAGE 1; BASOPHIL # 0.1 10^3/ul (0.0-0.1); BASOPHILS % 0.4 % (0.0-2.0); EOSINOPHILS # 0.3 10^3/ul (0.0-0.5); EOSINOPHILS % 2.1 % (0.0-7.0); HEMATOCRIT 30.9 % (42.0-52.0); HEMOGLOBIN 10.2 g/dl (14.0-18.0); LYMPHOCYTES # 1.4 10^3/ul (0.8-2.9); LYMPHOCYTES % 10.1 % (15.0-51.0); MEAN CORPUSCULAR HEMOGLOBIN 30.4 pg (29.0-33.0); MEAN PLATELET VOLUME 11.8 fl (7.4-10.4); MONOCYTE # 1.6 10^3/ul (0.3-0.9); NEUTROPHIL # 10.3 10^3/ul (1.6-7.5); NEUTROPHILS % 74.9 % (39.0-77.0); PLATELET COUNT 291 10^3/UL (140-415); POSITIVE DIFF @See below; RED BLOOD COUNT 3.36 10^6/ul (4.70-6.10); RED CELL DISTRIBUTION WIDTH 15.3 % (11.5-14.5)
[2017-07-06] MEDS: ACETAMINOPHEN 325 MG TAB PO (06:32)
[2017-07-06] MEDS: PANTOPRAZOLE (EC) 40 MG TAB PO (06:32)
[2017-07-06 06:46] LABS: ANION GAP 13 (8-16); BLOOD UREA NITROGEN 36 mg/dl (7-20); CALCIUM 8.1 mg/dl (8.4-10.2); CARBON DIOXIDE 24 mmol/L (21-31); CHLORIDE 106 mmol/L (97-110); CREATININE 1.13 mg/dl (0.61-1.24); GLUCOSE 85 mg/dl (70-220); MAGNESIUM 2.1 mg/dl (1.7-2.5); PHOSPHORUS 4.2 mg/dl (2.5-4.9); SODIUM 139 mmol/L (135-144)
[2017-07-06] MEDS: SOD CHLORIDE 0.9% 1,000 ML IV (08:19)
[2017-07-06] MEDS: CEFEPIME 1GM/50 ML (PMX) 50 ML IVPB ×2 (08:21→20:43)
[2017-07-06] MEDS: FERROUS SULFATE (EC) 325 MG TAB PO ×2 (08:22→20:39)
[2017-07-06] MEDS: MULTIVITAMINS THERAPEUTIC TAB PO (08:23)
[2017-07-06] MEDS: CLOPIDOGREL 75 MG TAB PO (08:23)
[2017-07-06] MEDS: NEUTRA-PHOS 250 MG PACKET PO ×2 (08:23→20:39)
[2017-07-06] MEDS: ESCITALOPRAM 10 MG TAB PO (08:23)
[2017-07-06] MEDS: FUROSEMIDE 20 MG TAB PO (08:30)
[2017-07-06] MEDS: METOPROLOL 25 MG TAB PO ×2 (08:30→20:40)
[2017-07-06] MEDS: ENOXAPARIN 40 MG/0.4 ML SYG SC (08:39)
[2017-07-06] MEDS: LISINOPRIL 10 MG TAB PO (09:00)
[2017-07-06] MEDS: NYSTATIN 30 GM POWDER BTL TOP ×2 (14:23→20:40)
[2017-07-06] MEDS: COLLAGENASE 30 GM TUBE TOP ×2 (14:23→20:40)
[2017-07-06] MEDS: BALSAM PERU/CASTOR OIL 60 GM TUBE TOP ×2 (14:23→20:40)
[2017-07-06] MEDS: HYDROCODONE/APAP (5/325) TAB PO (14:51)
[2017-07-06] MEDS: ATORVASTATIN 80 MG TAB PO (20:39)
[2017-07-07] MEDS: SOD CHLORIDE 0.9% 1,000 ML IV ×2 (04:12→23:30)
[2017-07-07 05:13] LABS: ADD MAN DIFF? NO
[2017-07-07 05:19] LABS: WHITE BLOOD COUNT 12.4 10^3/ul (4.8-10.8)
[2017-07-07 05:19] LABS: ABNORMAL IP MESSAGE 1; BASOPHILS % 0.3 % (0.0-2.0); EOSINOPHILS # 0.2 10^3/ul (0.0-0.5); EOSINOPHILS % 1.6 % (0.0-7.0); HEMATOCRIT 30.1 % (42.0-52.0); LYMPHOCYTES # 1.3 10^3/ul (0.8-2.9); LYMPHOCYTES % 10.8 % (15.0-51.0); MEAN CORPUSCULAR HEMOGLOBIN 30.3 pg (29.0-33.0); MEAN CORPUSCULAR HGB CONC 33.2 g/dl (32.0-37.0); MEAN CORPUSCULAR VOLUME 91.2 fl (82.0-101.0); MEAN PLATELET VOLUME 11.7 fl (7.4-10.4); MONOCYTE # 1.5 10^3/ul (0.3-0.9); MONOCYTES % 12.5 % (0.0-11.0); NEUTROPHIL # 9.2 10^3/ul (1.6-7.5); NEUTROPHILS % 74.2 % (39.0-77.0); PLATELET COUNT 289 10^3/UL (140-415); POSITIVE DIFF @See below; RED CELL DISTRIBUTION WIDTH 15.1 % (11.5-14.5)
[2017-07-07 05:39] LABS: ANION GAP 14 (8-16); BLOOD UREA NITROGEN 36 mg/dl (7-20); CALCIUM 8.2 mg/dl (8.4-10.2); CARBON DIOXIDE 23 mmol/L (21-31); CHLORIDE 105 mmol/L (97-110); CREATININE 1.09 mg/dl (0.61-1.24); GLUCOSE 90 mg/dl (70-220); MAGNESIUM 2.1 mg/dl (1.7-2.5); PHOSPHORUS 3.6 mg/dl (2.5-4.9); POTASSIUM 4.2 mmol/L (3.5-5.1); SODIUM 138 mmol/L (135-144)
[2017-07-07] MEDS: PANTOPRAZOLE (EC) 40 MG TAB PO (05:39)
[2017-07-07] MEDS: NEUTRA-PHOS 250 MG PACKET PO ×2 (09:08→21:36)
[2017-07-07] MEDS: CLOPIDOGREL 75 MG TAB PO (09:08)
[2017-07-07] MEDS: FERROUS SULFATE (EC) 325 MG TAB PO ×2 (09:08→21:36)
[2017-07-07] MEDS: ESCITALOPRAM 10 MG TAB PO (09:08)
[2017-07-07] MEDS: MULTIVITAMINS THERAPEUTIC TAB PO (09:08)
[2017-07-07] MEDS: LISINOPRIL 10 MG TAB PO (09:09)
[2017-07-07] MEDS: METOPROLOL 25 MG TAB PO ×2 (09:09→21:37)
[2017-07-07] MEDS: FUROSEMIDE 20 MG TAB PO (09:09)
[2017-07-07] MEDS: ENOXAPARIN 40 MG/0.4 ML SYG SC (09:14)
[2017-07-07] MEDS: CEFEPIME 1GM/50 ML (PMX) 50 ML IVPB ×2 (11:57→21:36)
[2017-07-07] MEDS: COLLAGENASE 30 GM TUBE TOP ×2 (12:13→21:39)
[2017-07-07] MEDS: BALSAM PERU/CASTOR OIL 60 GM TUBE TOP ×2 (12:13→21:39)
[2017-07-07] MEDS: NYSTATIN 30 GM POWDER BTL TOP ×2 (12:13→21:39)
[2017-07-07] MEDS ORDERED: IOHEXOL 100 ML (20:43)
[2017-07-07] MEDS ORDERED: SOD CHLORIDE 0.9% 100 ML (20:43)
[2017-07-07] MEDS: ATORVASTATIN 80 MG TAB PO (21:36)
[2017-07-07] MEDS: HYDROCODONE/APAP (5/325) TAB PO (21:42)
[2017-07-08 04:57] LABS: ADD MAN DIFF? NO
[2017-07-08 05:01] LABS: WHITE BLOOD COUNT 10.7 10^3/ul (4.8-10.8)
[2017-07-08 05:01] LABS: BASOPHIL # 0.1 10^3/ul (0.0-0.1); BASOPHILS % 0.7 % (0.0-2.0); EOSINOPHILS # 0.2 10^3/ul (0.0-0.5); EOSINOPHILS % 1.9 % (0.0-7.0); HEMOGLOBIN 10.3 g/dl (14.0-18.0); LYMPHOCYTES # 1.6 10^3/ul (0.8-2.9); LYMPHOCYTES % 14.5 % (15.0-51.0); MEAN CORPUSCULAR HEMOGLOBIN 30.5 pg (29.0-33.0); MEAN CORPUSCULAR HGB CONC 33.2 g/dl (32.0-37.0); MEAN CORPUSCULAR VOLUME 91.7 fl (82.0-101.0); MEAN PLATELET VOLUME 11.3 fl (7.4-10.4); MONOCYTE # 1.4 10^3/ul (0.3-0.9); MONOCYTES % 13.2 % (0.0-11.0); NEUTROPHIL # 7.4 10^3/ul (1.6-7.5); NEUTROPHILS % 69.2 % (39.0-77.0); PLATELET COUNT 307 10^3/UL (140-415); RED BLOOD COUNT 3.38 10^6/ul (4.70-6.10); RED CELL DISTRIBUTION WIDTH 15.2 % (11.5-14.5)
[2017-07-08 05:16] LABS: ANION GAP 14 (8-16); BLOOD UREA NITROGEN 32 mg/dl (7-20); CALCIUM 8.1 mg/dl (8.4-10.2); CARBON DIOXIDE 23 mmol/L (21-31); CHLORIDE 106 mmol/L (97-110); CREATININE 1.04 mg/dl (0.61-1.24); GLUCOSE 84 mg/dl (70-220); SODIUM 139 mmol/L (135-144)
[2017-07-08] MEDS: PANTOPRAZOLE (EC) 40 MG TAB PO (05:31)
[2017-07-08] MEDS: SOD CHLORIDE 0.9% 1,000 ML IV (05:34)
[2017-07-08 05:37] LABS: PHOSPHORUS 3.5 mg/dl (2.5-4.9)
[2017-07-08] MEDS: FERROUS SULFATE (EC) 325 MG TAB PO ×2 (08:28→20:40)
[2017-07-08] MEDS: MULTIVITAMINS THERAPEUTIC TAB PO (08:28)
[2017-07-08] MEDS: CLOPIDOGREL 75 MG TAB PO (08:28)
[2017-07-08] MEDS: ESCITALOPRAM 10 MG TAB PO (08:28)
[2017-07-08] MEDS: METOPROLOL 25 MG TAB PO ×2 (08:29→20:40)
[2017-07-08] MEDS: FUROSEMIDE 20 MG TAB PO (08:29)
[2017-07-08] MEDS: HYDROCODONE/APAP (5/325) TAB PO ×2 (08:29→19:51)
[2017-07-08] MEDS: NEUTRA-PHOS 250 MG PACKET PO ×2 (08:29→20:39)
[2017-07-08] MEDS: COLLAGENASE 30 GM TUBE TOP ×2 (08:30→20:43)
[2017-07-08] MEDS: CEFEPIME 1GM/50 ML (PMX) 50 ML IVPB (08:30)
[2017-07-08] MEDS: NYSTATIN 30 GM POWDER BTL TOP ×2 (08:30→20:43)
[2017-07-08] MEDS: BALSAM PERU/CASTOR OIL 60 GM TUBE TOP ×2 (08:30→20:43)
[2017-07-08] MEDS: ENOXAPARIN 40 MG/0.4 ML SYG SC (08:31)
[2017-07-08] MEDS ORDERED: MULTIVITAMINS THERAPEUTIC TAB PO (16:00)
[2017-07-08] MEDS: ATORVASTATIN 80 MG TAB PO (20:39)
[2017-07-09] MEDS: SOD CHLORIDE 0.9% 1,000 ML IV (01:55)
[2017-07-09 06:11] LABS: ADD MAN DIFF? NO
[2017-07-09] MEDS: PANTOPRAZOLE (EC) 40 MG TAB PO (06:15)
[2017-07-09 06:19] LABS: ABNORMAL IP MESSAGE 1; BASOPHIL # 0.1 10^3/ul (0.0-0.1); BASOPHILS % 0.7 % (0.0-2.0); EOSINOPHILS # 0.2 10^3/ul (0.0-0.5); EOSINOPHILS % 1.8 % (0.0-7.0); HEMATOCRIT 31.1 % (42.0-52.0); HEMOGLOBIN 10.4 g/dl (14.0-18.0); LYMPHOCYTES # 1.6 10^3/ul (0.8-2.9); LYMPHOCYTES % 13.9 % (15.0-51.0); MEAN CORPUSCULAR HEMOGLOBIN 30.1 pg (29.0-33.0); MEAN CORPUSCULAR HGB CONC 33.4 g/dl (32.0-37.0); MEAN CORPUSCULAR VOLUME 89.9 fl (82.0-101.0); MEAN PLATELET VOLUME 11.6 fl (7.4-10.4); MONOCYTE # 1.5 10^3/ul (0.3-0.9); NEUTROPHIL # 8.3 10^3/ul (1.6-7.5); NEUTROPHILS % 70.2 % (39.0-77.0); PLATELET COUNT 324 10^3/UL (140-415); POSITIVE DIFF @See below; RED BLOOD COUNT 3.46 10^6/ul (4.70-6.10); RED CELL DISTRIBUTION WIDTH 15.2 % (11.5-14.5)
[2017-07-09 06:19] LABS: WHITE BLOOD COUNT 11.8 10^3/ul (4.8-10.8)
[2017-07-09 06:39] LABS: PHOSPHORUS 3.6 mg/dl (2.5-4.9)
[2017-07-09 06:39] LABS: MAGNESIUM 1.9 mg/dl (1.7-2.5)
[2017-07-09 06:53] LABS: ANION GAP 16 (8-16); BLOOD UREA NITROGEN 28 mg/dl (7-20); CALCIUM 8.3 mg/dl (8.4-10.2); CARBON DIOXIDE 21 mmol/L (21-31); CHLORIDE 106 mmol/L (97-110); CREATININE 1.08 mg/dl (0.61-1.24); GLUCOSE 82 mg/dl (70-220); POTASSIUM 3.8 mmol/L (3.5-5.1); SODIUM 139 mmol/L (135-144)
[2017-07-09] MEDS: FERROUS SULFATE (EC) 325 MG TAB PO (08:45)
[2017-07-09] MEDS: ESCITALOPRAM 10 MG TAB PO (08:45)
[2017-07-09] MEDS: FUROSEMIDE 20 MG TAB PO (08:45)
[2017-07-09] MEDS: NEUTRA-PHOS 250 MG PACKET PO (08:45)
[2017-07-09] MEDS: ASCORBIC ACID 500 MG TAB PO (08:47)
[2017-07-09] MEDS: METOPROLOL 25 MG TAB PO (08:47)
[2017-07-09] MEDS: HYDROCODONE/APAP (5/325) TAB PO (08:47)
[2017-07-09] MEDS: MULTIVITAMINS THERAPEUTIC TAB PO (08:47)
[2017-07-09] MEDS: CLOPIDOGREL 75 MG TAB PO (08:47)
[2017-07-09] MEDS: BALSAM PERU/CASTOR OIL 60 GM TUBE TOP (08:48)
[2017-07-09] MEDS: NYSTATIN 30 GM POWDER BTL TOP (08:48)
[2017-07-09] MEDS: COLLAGENASE 30 GM TUBE TOP (08:48)
[2017-07-09] MEDS: ENOXAPARIN 40 MG/0.4 ML SYG SC (08:51)
== END 2017-07-09 17:55 | DRG 480 ==
LOC: MS1 06-22 05:00 → E/R 11:30 → MS1 20:42 → MS2 13:10
PROC: 0QS606Z Reposition Right Upper Femur with Intramedullary Internal Fixation Device, Open Approach (ICD-10-PCS; principal; 2017-06-27 13:00)
PROC: 30233N1 Transfusion of Nonautologous Red Blood Cells into Peripheral Vein, Percutaneous Approach (ICD-10-PCS; 2017-06-27 14:25)
DX: S72.141A Displaced intertrochanteric fracture of right femur, initial encounter for closed fracture (principal); J18.9 Pneumonia, unspecified organism; J96.00 Acute respiratory failure, unspecified whether with hypoxia or hypercapnia; N17.9 Acute kidney failure, unspecified; R65.10 Systemic inflammatory response syndrome (SIRS) of non-infectious origin without acute organ dysfunction; I50.30 Unspecified diastolic (congestive) heart failure; I13.0 Hypertensive heart and chronic kidney disease with heart failure and stage 1 through stage 4 chronic kidney disease, or unspecified chronic kidney disease; S72.351A Displaced comminuted fracture of shaft of right femur, initial encounter for closed fracture; J44.9 Chronic obstructive pulmonary disease, unspecified; I70.244 Atherosclerosis of native arteries of left leg with ulceration of heel and midfoot; L89.629 Pressure ulcer of left heel, unspecified stage; L89.622 Pressure ulcer of left heel, stage 2; I70.233 Atherosclerosis of native arteries of right leg with ulceration of ankle; L89.510 Pressure ulcer of right ankle, unstageable; L89.890 Pressure ulcer of other site, unstageable; D64.9 Anemia, unspecified; F01.50 Vascular dementia, unspecified severity, without behavioral disturbance, psychotic disturbance, mood disturbance, and anxiety; E78.5 Hyperlipidemia, unspecified; E87.6 Hypokalemia; F17.200 Nicotine dependence, unspecified, uncomplicated; F32.9 Major depressive disorder, single episode, unspecified; I25.10 Atherosclerotic heart disease of native coronary artery without angina pectoris; K59.00 Constipation, unspecified; M81.0 Age-related osteoporosis without current pathological fracture; M62.562 Muscle wasting and atrophy, not elsewhere classified, left lower leg; M62.561 Muscle wasting and atrophy, not elsewhere classified, right lower leg; N18.9 Chronic kidney disease, unspecified; W01.0XXA Fall on same level from slipping, tripping and stumbling without subsequent striking against object, initial encounter; I25.2 Old myocardial infarction; Z98.61 Coronary angioplasty status; Z79.02 Long term (current) use of antithrombotics/antiplatelets
CPT/HCPCS: 36430; 71045; 72170; 73500; 73510; 73706; 80048; 80053; 80061; 80202; 81001; 83036; 83735; 84100; 84443; 85025; 85610; 85730; 86850; 86900; 86901; 86920; 93005; 93306; 93922; 94664; 96374; 96375; 97110; 97116; 97162; 97530; 99285-25

== ENCOUNTER 2017-07-09 18:04 | Inpatient (IN) | payer MEDICARE ==
[2017-07-09] MEDS ORDERED: DOCUSATE SODIUM 100 MG CAP PO (20:00)
[2017-07-09] MEDS ORDERED: ALBUTEROL/IPRATROPIUM (NEB) 3 ML AMP HHN (20:00)
[2017-07-09] MEDS ORDERED: ONDANSETRON 4 MG INJ IV (20:30)
[2017-07-09] MEDS ORDERED: NACL 0.9% 3 ML SYG IV (20:30)
[2017-07-09] MEDS ORDERED: MAGNESIUM HYDROXIDE 30ML CUP PO (20:30)
[2017-07-09] MEDS: ATORVASTATIN 80 MG TAB PO (20:51)
[2017-07-09] MEDS: METOPROLOL 25 MG TAB PO (20:51)
[2017-07-09] MEDS: FERROUS SULFATE (EC) 325 MG TAB PO (20:51)
[2017-07-09] MEDS: NYSTATIN 30 GM POWDER BTL TOP (21:42)
[2017-07-09] MEDS: BALSAM PERU/CASTOR OIL 60 GM TUBE TOP (21:42)
[2017-07-09] MEDS: COLLAGENASE 30 GM TUBE TOP (21:42)
[2017-07-09] MEDS: NEUTRA-PHOS 250 MG PACKET PO (21:42)
[2017-07-09] MEDS ORDERED: BISACODYL 10 MG SUPP PR (22:30)
[2017-07-09] MEDS ORDERED: LACTULOSE 30ML CUP PO (22:30)
[2017-07-09] MEDS ORDERED: PENDING SANTYL ORDER FOR WOUND CARE XX (22:30)
[2017-07-10] MEDS: HYDROCODONE/APAP (5/325) TAB PO ×2 (00:25→06:14)
[2017-07-10] MEDS: PANTOPRAZOLE (EC) 40 MG TAB PO (06:14)
[2017-07-10 07:39] LABS: ADD MAN DIFF? NO
[2017-07-10 07:41] LABS: ABNORMAL IP MESSAGE 1; BASOPHIL # 0.1 10^3/ul (0.0-0.1); BASOPHILS % 0.5 % (0.0-2.0); EOSINOPHILS # 0.1 10^3/ul (0.0-0.5); EOSINOPHILS % 1.1 % (0.0-7.0); HEMATOCRIT 31.1 % (42.0-52.0); HEMOGLOBIN 10.6 g/dl (14.0-18.0); LYMPHOCYTES # 1.5 10^3/ul (0.8-2.9); LYMPHOCYTES % 12.7 % (15.0-51.0); MEAN CORPUSCULAR HEMOGLOBIN 30.6 pg (29.0-33.0); MEAN CORPUSCULAR HGB CONC 34.1 g/dl (32.0-37.0); MEAN CORPUSCULAR VOLUME 89.9 fl (82.0-101.0); MEAN PLATELET VOLUME 11.4 fl (7.4-10.4); MONOCYTE # 1.6 10^3/ul (0.3-0.9); MONOCYTES % 13.7 % (0.0-11.0); NEUTROPHIL # 8.2 10^3/ul (1.6-7.5); NEUTROPHILS % 71.6 % (39.0-77.0); PLATELET COUNT 337 10^3/UL (140-415); POSITIVE DIFF @See below; RED BLOOD COUNT 3.46 10^6/ul (4.70-6.10)
[2017-07-10 07:41] LABS: WHITE BLOOD COUNT 11.4 10^3/ul (4.8-10.8)
[2017-07-10 08:05] LABS: ALANINE AMINOTRANSFERASE 73 IU/L (13-69); ALBUMIN 3.1 g/dl (3.3-4.9); ALBUMIN/GLOBULIN RATIO 1.06; ALKALINE PHOSPHATASE 149 IU/L (42-121); ANION GAP 17 (8-16); ASPARTATE AMINO TRANSFERASE 57 IU/L (15-46); BILIRUBIN,INDIRECT 0.9 mg/dl (0-1.1); BILIRUBIN,TOTAL 0.9 mg/dl (0.2-1.3); BLOOD UREA NITROGEN 25 mg/dl (7-20); CALCIUM 8.5 mg/dl (8.4-10.2); CARBON DIOXIDE 20 mmol/L (21-31); CHLORIDE 104 mmol/L (97-110); CREATININE 0.99 mg/dl (0.61-1.24); GLUCOSE 88 mg/dl (70-220); POTASSIUM 3.9 mmol/L (3.5-5.1); SODIUM 137 mmol/L (135-144)
[2017-07-10 08:23] LABS: ADD UMIC YES; UR ASCORBIC ACID 40 mg/dL (NEGATIVE); UR BILIRUBIN (Dip) NEGATIVE (NEGATIVE); UR BLOOD (Dip) NEGATIVE (NEGATIVE); UR CLARITY CLEAR (CLEAR); UR COLOR YELLOW (YELLOW); UR GLUCOSE (Dip) NEGATIVE (NEGATIVE); UR KETONES (Dip) NEGATIVE (NEGATIVE); UR LEUKOCYTE ESTERASE (Dip) NEGATIVE Leu/ul (NEGATIVE); UR NITRITE (Dip) NEGATIVE (NEGATIVE); UR RBC 1 /HPF (0-5); UR SPECIFIC GRAVITY (Dip) 1.013 (1.003-1.030); UR TOTAL PROTEIN (Dip) 1+ mg/dl (NEGATIVE); UR UROBILINOGEN (Dip) 1+ mg/dL (NEGATIVE); UR WBC 2 /HPF (0-5)
[2017-07-10] MEDS: BALSAM PERU/CASTOR OIL 60 GM TUBE TOP ×2 (09:13→20:26)
[2017-07-10] MEDS: COLLAGENASE 30 GM TUBE TOP ×2 (09:13→20:26)
[2017-07-10] MEDS: MULTIVITAMINS THERAPEUTIC TAB PO (09:13)
[2017-07-10] MEDS: NYSTATIN 30 GM POWDER BTL TOP ×2 (09:13→20:26)
[2017-07-10] MEDS: METOPROLOL 25 MG TAB PO ×2 (09:14→20:29)
[2017-07-10] MEDS: CLOPIDOGREL 75 MG TAB PO (09:14)
[2017-07-10] MEDS: NEUTRA-PHOS 250 MG PACKET PO ×2 (09:14→20:26)
[2017-07-10] MEDS: FERROUS SULFATE (EC) 325 MG TAB PO ×2 (09:14→20:28)
[2017-07-10] MEDS: ESCITALOPRAM 10 MG TAB PO (09:14)
[2017-07-10] MEDS: FUROSEMIDE 20 MG TAB PO (09:15)
[2017-07-10] MEDS: ENOXAPARIN 40 MG/0.4 ML SYG SC (09:16)
[2017-07-10] MEDS: ATORVASTATIN 80 MG TAB PO (20:28)
[2017-07-10] MEDS: ACETAMINOPHEN 325 MG TAB PO (20:28)
[2017-07-11] MEDS: PANTOPRAZOLE (EC) 40 MG TAB PO (06:05)
[2017-07-11] MEDS: NEUTRA-PHOS 250 MG PACKET PO ×2 (09:38→20:31)
[2017-07-11] MEDS: CLOPIDOGREL 75 MG TAB PO (09:38)
[2017-07-11] MEDS: METOPROLOL 25 MG TAB PO ×2 (09:38→20:32)
[2017-07-11] MEDS: ZINC SULFATE 220 MG CAP PO (09:38)
[2017-07-11] MEDS: FOLIC ACID 1 MG TAB PO (09:38)
[2017-07-11] MEDS: FERROUS SULFATE (EC) 325 MG TAB PO ×2 (09:38→20:32)
[2017-07-11] MEDS: ESCITALOPRAM 10 MG TAB PO (09:39)
[2017-07-11] MEDS: MULTIVITAMINS THERAPEUTIC TAB PO (09:39)
[2017-07-11] MEDS: FUROSEMIDE 20 MG TAB PO (09:39)
[2017-07-11] MEDS: ASCORBIC ACID 500 MG TAB PO (09:39)
[2017-07-11] MEDS: NYSTATIN 30 GM POWDER BTL TOP ×2 (09:40→20:32)
[2017-07-11] MEDS: ENOXAPARIN 40 MG/0.4 ML SYG SC (09:42)
[2017-07-11] MEDS: COLLAGENASE 30 GM TUBE TOP ×2 (09:47→13:00)
[2017-07-11] MEDS: BALSAM PERU/CASTOR OIL 60 GM TUBE TOP ×2 (09:47→20:31)
[2017-07-11] MEDS: ATORVASTATIN 80 MG TAB PO (20:32)
[2017-07-12] MEDS: PANTOPRAZOLE (EC) 40 MG TAB PO (06:54)
[2017-07-12 07:23] LABS: ADD MAN DIFF? NO
[2017-07-12 07:30] LABS: WHITE BLOOD COUNT 11.5 10^3/ul (4.8-10.8)
[2017-07-12 07:30] LABS: ABNORMAL IP MESSAGE 1; BASOPHIL # 0.1 10^3/ul (0.0-0.1); BASOPHILS % 0.4 % (0.0-2.0); EOSINOPHILS # 0.1 10^3/ul (0.0-0.5); EOSINOPHILS % 0.5 % (0.0-7.0); HEMATOCRIT 31.7 % (42.0-52.0); HEMOGLOBIN 10.5 g/dl (14.0-18.0); LYMPHOCYTES # 1.2 10^3/ul (0.8-2.9); LYMPHOCYTES % 10.6 % (15.0-51.0); MEAN CORPUSCULAR HGB CONC 33.1 g/dl (32.0-37.0); MEAN CORPUSCULAR VOLUME 90.6 fl (82.0-101.0); MEAN PLATELET VOLUME 11.3 fl (7.4-10.4); MONOCYTE # 1.7 10^3/ul (0.3-0.9); MONOCYTES % 14.4 % (0.0-11.0); NEUTROPHIL # 8.5 10^3/ul (1.6-7.5); NEUTROPHILS % 73.8 % (39.0-77.0); PLATELET COUNT 346 10^3/UL (140-415); POSITIVE DIFF @See below
[2017-07-12 07:46] LABS: MAGNESIUM 1.8 mg/dl (1.7-2.5)
[2017-07-12 07:46] LABS: PHOSPHORUS 3.6 mg/dl (2.5-4.9)
[2017-07-12 08:03] LABS: ALANINE AMINOTRANSFERASE 74 IU/L (13-69); ALBUMIN/GLOBULIN RATIO 0.85; ALKALINE PHOSPHATASE 150 IU/L (42-121); ANION GAP 14 (8-16); ASPARTATE AMINO TRANSFERASE 62 IU/L (15-46); BILIRUBIN,INDIRECT 0.8 mg/dl (0-1.1); BILIRUBIN,TOTAL 0.8 mg/dl (0.2-1.3); BLOOD UREA NITROGEN 23 mg/dl (7-20); CALCIUM 8.3 mg/dl (8.4-10.2); CARBON DIOXIDE 25 mmol/L (21-31); CHLORIDE 102 mmol/L (97-110); CREATININE 1.05 mg/dl (0.61-1.24); GLUCOSE 94 mg/dl (70-220); POTASSIUM 3.3 mmol/L (3.5-5.1); SODIUM 138 mmol/L (135-144); TOTAL PROTEIN 6.5 g/dl (6.1-8.1)
[2017-07-12] MEDS: FERROUS SULFATE (EC) 325 MG TAB PO ×2 (09:42→21:44)
[2017-07-12] MEDS: METOPROLOL 25 MG TAB PO ×2 (09:43→21:44)
[2017-07-12] MEDS: FOLIC ACID 1 MG TAB PO (09:43)
[2017-07-12] MEDS: ASCORBIC ACID 500 MG TAB PO (09:43)
[2017-07-12] MEDS: ESCITALOPRAM 10 MG TAB PO (09:43)
[2017-07-12] MEDS: MULTIVITAMINS THERAPEUTIC TAB PO (09:49)
[2017-07-12] MEDS: NEUTRA-PHOS 250 MG PACKET PO ×2 (09:49→21:45)
[2017-07-12] MEDS: CLOPIDOGREL 75 MG TAB PO (09:49)
[2017-07-12] MEDS: NYSTATIN 30 GM POWDER BTL TOP ×2 (09:49→21:48)
[2017-07-12] MEDS: ZINC SULFATE 220 MG CAP PO (09:49)
[2017-07-12] MEDS: FUROSEMIDE 20 MG TAB PO (09:49)
[2017-07-12] MEDS: ENOXAPARIN 40 MG/0.4 ML SYG SC (09:50)
[2017-07-12] MEDS: COLLAGENASE 30 GM TUBE TOP (09:50)
[2017-07-12] MEDS: BALSAM PERU/CASTOR OIL 60 GM TUBE TOP ×2 (09:50→21:45)
[2017-07-12] MEDS: ATORVASTATIN 80 MG TAB PO (21:44)
[2017-07-12] MEDS: MEGESTROL (40 MG/ML) 10ML CUP PO (21:44)
[2017-07-13] MEDS: PANTOPRAZOLE (EC) 40 MG TAB PO (06:34)
[2017-07-13] MEDS: BALSAM PERU/CASTOR OIL 60 GM TUBE TOP (10:12)
[2017-07-13] MEDS: MEGESTROL (40 MG/ML) 10ML CUP PO ×2 (10:13→21:38)
[2017-07-13] MEDS: FOLIC ACID 1 MG TAB PO (10:13)
[2017-07-13] MEDS: COLLAGENASE 30 GM TUBE TOP (10:13)
[2017-07-13] MEDS: NYSTATIN 30 GM POWDER BTL TOP ×2 (10:13→21:48)
[2017-07-13] MEDS: NEUTRA-PHOS 250 MG PACKET PO ×2 (10:13→21:38)
[2017-07-13] MEDS: FERROUS SULFATE (EC) 325 MG TAB PO ×2 (10:14→21:38)
[2017-07-13] MEDS: MULTIVITAMINS THERAPEUTIC TAB PO (10:14)
[2017-07-13] MEDS: FUROSEMIDE 20 MG TAB PO (10:14)
[2017-07-13] MEDS: ASCORBIC ACID 500 MG TAB PO (10:14)
[2017-07-13] MEDS: ZINC SULFATE 220 MG CAP PO (10:14)
[2017-07-13] MEDS: ESCITALOPRAM 10 MG TAB PO (10:14)
[2017-07-13] MEDS: METOPROLOL 25 MG TAB PO ×2 (10:15→21:39)
[2017-07-13] MEDS: CLOPIDOGREL 75 MG TAB PO (10:15)
[2017-07-13] MEDS: ENOXAPARIN 40 MG/0.4 ML SYG SC (10:17)
[2017-07-13] MEDS: ATORVASTATIN 80 MG TAB PO (21:38)
[2017-07-14] MEDS: PANTOPRAZOLE (EC) 40 MG TAB PO (06:44)
[2017-07-14] MEDS: ASCORBIC ACID 500 MG TAB PO (09:47)
[2017-07-14] MEDS: HYDROCODONE/APAP (5/325) TAB PO (09:47)
[2017-07-14] MEDS: FERROUS SULFATE (EC) 325 MG TAB PO ×2 (09:47→21:42)
[2017-07-14] MEDS: ESCITALOPRAM 10 MG TAB PO (09:47)
[2017-07-14] MEDS: NEUTRA-PHOS 250 MG PACKET PO ×2 (09:47→21:42)
[2017-07-14] MEDS: FOLIC ACID 1 MG TAB PO (09:47)
[2017-07-14] MEDS: CLOPIDOGREL 75 MG TAB PO (09:47)
[2017-07-14] MEDS: ZINC SULFATE 220 MG CAP PO (09:47)
[2017-07-14] MEDS: METOPROLOL 25 MG TAB PO ×2 (09:48→21:43)
[2017-07-14] MEDS: FUROSEMIDE 20 MG TAB PO (09:48)
[2017-07-14] MEDS: NYSTATIN 30 GM POWDER BTL TOP ×2 (09:48→21:00)
[2017-07-14] MEDS: MEGESTROL (40 MG/ML) 10ML CUP PO ×2 (09:49→21:42)
[2017-07-14] MEDS: COLLAGENASE 30 GM TUBE TOP (09:49)
[2017-07-14] MEDS: ENOXAPARIN 40 MG/0.4 ML SYG SC (09:50)
[2017-07-14] MEDS: MULTIVITAMINS THERAPEUTIC TAB PO (09:58)
[2017-07-14] MEDS: ATORVASTATIN 80 MG TAB PO (21:42)
[2017-07-14] MEDS: ACETAMINOPHEN 325 MG TAB PO (21:42)
[2017-07-15 07:00] LABS: ADD MAN DIFF? NO
[2017-07-15] MEDS: PANTOPRAZOLE (EC) 40 MG TAB PO (07:00)
[2017-07-15 07:03] LABS: WHITE BLOOD COUNT 15.2 10^3/ul (4.8-10.8)
[2017-07-15 07:03] LABS: ABNORMAL IP MESSAGE 1; BASOPHIL # 0.1 10^3/ul (0.0-0.1); BASOPHILS % 0.3 % (0.0-2.0); EOSINOPHILS # 0.1 10^3/ul (0.0-0.5); EOSINOPHILS % 0.5 % (0.0-7.0); HEMATOCRIT 31.6 % (42.0-52.0); HEMOGLOBIN 10.8 g/dl (14.0-18.0); LYMPHOCYTES # 1.7 10^3/ul (0.8-2.9); LYMPHOCYTES % 11.3 % (15.0-51.0); MEAN CORPUSCULAR HEMOGLOBIN 30.5 pg (29.0-33.0); MEAN CORPUSCULAR HGB CONC 34.2 g/dl (32.0-37.0); MEAN CORPUSCULAR VOLUME 89.3 fl (82.0-101.0); MEAN PLATELET VOLUME 11.3 fl (7.4-10.4); MONOCYTE # 2.1 10^3/ul (0.3-0.9); MONOCYTES % 13.7 % (0.0-11.0); NEUTROPHIL # 11.2 10^3/ul (1.6-7.5); NEUTROPHILS % 73.8 % (39.0-77.0); PLATELET COUNT 375 10^3/UL (140-415); POSITIVE DIFF @See below; RED BLOOD COUNT 3.54 10^6/ul (4.70-6.10); RED CELL DISTRIBUTION WIDTH 14.7 % (11.5-14.5)
[2017-07-15 07:28] LABS: MAGNESIUM 1.9 mg/dl (1.7-2.5)
[2017-07-15 07:28] LABS: PHOSPHORUS 3.7 mg/dl (2.5-4.9)
[2017-07-15 07:35] LABS: ALANINE AMINOTRANSFERASE 77 IU/L (13-69); ALKALINE PHOSPHATASE 151 IU/L (42-121); ANION GAP 18 (8-16); ASPARTATE AMINO TRANSFERASE 68 IU/L (15-46); BILIRUBIN,INDIRECT 0.7 mg/dl (0-1.1); BILIRUBIN,TOTAL 0.7 mg/dl (0.2-1.3); BLOOD UREA NITROGEN 24 mg/dl (7-20); CALCIUM 8.8 mg/dl (8.4-10.2); CARBON DIOXIDE 24 mmol/L (21-31); CHLORIDE 102 mmol/L (97-110); CREATININE 1.05 mg/dl (0.61-1.24); GLUCOSE 93 mg/dl (70-220); POTASSIUM 3.7 mmol/L (3.5-5.1); SODIUM 140 mmol/L (135-144); TOTAL PROTEIN 6.3 g/dl (6.1-8.1)
[2017-07-15] MEDS: FOLIC ACID 1 MG TAB PO (10:30)
[2017-07-15] MEDS: FERROUS SULFATE (EC) 325 MG TAB PO ×2 (10:30→20:48)
[2017-07-15] MEDS: NEUTRA-PHOS 250 MG PACKET PO ×2 (10:30→20:49)
[2017-07-15] MEDS: ESCITALOPRAM 10 MG TAB PO (10:31)
[2017-07-15] MEDS: MEGESTROL (40 MG/ML) 10ML CUP PO ×2 (10:31→20:49)
[2017-07-15] MEDS: MULTIVITAMINS THERAPEUTIC TAB PO (10:31)
[2017-07-15] MEDS: ASCORBIC ACID 500 MG TAB PO (10:31)
[2017-07-15] MEDS: FUROSEMIDE 20 MG TAB PO (10:32)
[2017-07-15] MEDS: CLOPIDOGREL 75 MG TAB PO (10:32)
[2017-07-15] MEDS: METOPROLOL 25 MG TAB PO ×2 (10:32→20:49)
[2017-07-15] MEDS: ENOXAPARIN 40 MG/0.4 ML SYG SC (10:33)
[2017-07-15] MEDS: NYSTATIN 30 GM POWDER BTL TOP ×2 (10:33→20:50)
[2017-07-15] MEDS: COLLAGENASE 30 GM TUBE TOP (10:34)
[2017-07-15] MEDS: ZINC SULFATE 220 MG CAP PO (10:44)
[2017-07-15] MEDS: ATORVASTATIN 80 MG TAB PO (20:49)
[2017-07-16 02:57] LABS: ADD UMIC YES; UR ASCORBIC ACID 40 mg/dL (NEGATIVE); UR BILIRUBIN (Dip) NEGATIVE (NEGATIVE); UR BLOOD (Dip) NEGATIVE (NEGATIVE); UR CLARITY CLEAR (CLEAR); UR COLOR YELLOW (YELLOW); UR GLUCOSE (Dip) NEGATIVE (NEGATIVE); UR KETONES (Dip) NEGATIVE (NEGATIVE); UR LEUKOCYTE ESTERASE (Dip) NEGATIVE Leu/ul (NEGATIVE); UR NITRITE (Dip) NEGATIVE (NEGATIVE); UR RBC 0 /HPF (0-5); UR SPECIFIC GRAVITY (Dip) 1.013 (1.003-1.030); UR TOTAL PROTEIN (Dip) 1+ mg/dl (NEGATIVE); UR UROBILINOGEN (Dip) 2+ mg/dL (NEGATIVE); UR WBC 1 /HPF (0-5)
[2017-07-16] MEDS: PANTOPRAZOLE (EC) 40 MG TAB PO (06:11)
[2017-07-16 07:36] LABS: ADD MAN DIFF? NO
[2017-07-16 07:41] LABS: ABNORMAL IP MESSAGE 1; BASOPHIL # 0.1 10^3/ul (0.0-0.1); BASOPHILS % 0.4 % (0.0-2.0); EOSINOPHILS % 0.2 % (0.0-7.0); HEMATOCRIT 30.8 % (42.0-52.0); HEMOGLOBIN 10.4 g/dl (14.0-18.0); LYMPHOCYTES # 1.2 10^3/ul (0.8-2.9); LYMPHOCYTES % 10.1 % (15.0-51.0); MEAN CORPUSCULAR HEMOGLOBIN 30.1 pg (29.0-33.0); MEAN CORPUSCULAR HGB CONC 33.8 g/dl (32.0-37.0); MEAN CORPUSCULAR VOLUME 89.3 fl (82.0-101.0); MEAN PLATELET VOLUME 11.5 fl (7.4-10.4); MONOCYTE # 1.6 10^3/ul (0.3-0.9); MONOCYTES % 13.3 % (0.0-11.0); NEUTROPHIL # 9.2 10^3/ul (1.6-7.5); NEUTROPHILS % 75.6 % (39.0-77.0); PLATELET COUNT 363 10^3/UL (140-415); POSITIVE DIFF @See below; RED BLOOD COUNT 3.45 10^6/ul (4.70-6.10); RED CELL DISTRIBUTION WIDTH 14.8 % (11.5-14.5)
[2017-07-16 07:41] LABS: WHITE BLOOD COUNT 12.1 10^3/ul (4.8-10.8)
[2017-07-16 08:00] LABS: MAGNESIUM 1.9 mg/dl (1.7-2.5)
[2017-07-16 08:03] LABS: ALANINE AMINOTRANSFERASE 79 IU/L (13-69); ALBUMIN 2.9 g/dl (3.3-4.9); ALBUMIN/GLOBULIN RATIO 0.85; ALKALINE PHOSPHATASE 139 IU/L (42-121); ANION GAP 16 (8-16); ASPARTATE AMINO TRANSFERASE 62 IU/L (15-46); BILIRUBIN,INDIRECT 0.5 mg/dl (0-1.1); BILIRUBIN,TOTAL 0.5 mg/dl (0.2-1.3); BLOOD UREA NITROGEN 23 mg/dl (7-20); CALCIUM 8.5 mg/dl (8.4-10.2); CARBON DIOXIDE 25 mmol/L (21-31); CHLORIDE 102 mmol/L (97-110); CREATININE 1.11 mg/dl (0.61-1.24); GLUCOSE 87 mg/dl (70-220); POTASSIUM 3.1 mmol/L (3.5-5.1); SODIUM 140 mmol/L (135-144); TOTAL PROTEIN 6.3 g/dl (6.1-8.1)
[2017-07-16] MEDS: ZINC SULFATE 220 MG CAP PO (09:02)
[2017-07-16] MEDS: MULTIVITAMINS THERAPEUTIC TAB PO (09:02)
[2017-07-16] MEDS: FOLIC ACID 1 MG TAB PO (09:02)
[2017-07-16] MEDS: ASCORBIC ACID 500 MG TAB PO (09:02)
[2017-07-16] MEDS: MEGESTROL (40 MG/ML) 10ML CUP PO ×2 (09:02→21:27)
[2017-07-16] MEDS: NEUTRA-PHOS 250 MG PACKET PO ×2 (09:02→21:27)
[2017-07-16] MEDS: CLOPIDOGREL 75 MG TAB PO (09:02)
[2017-07-16] MEDS: ESCITALOPRAM 10 MG TAB PO (09:03)
[2017-07-16] MEDS: FERROUS SULFATE (EC) 325 MG TAB PO ×2 (09:03→21:27)
[2017-07-16] MEDS: METOPROLOL 25 MG TAB PO ×2 (09:04→21:27)
[2017-07-16] MEDS: FUROSEMIDE 20 MG TAB PO (09:04)
[2017-07-16] MEDS: NYSTATIN 30 GM POWDER BTL TOP ×2 (09:10→21:28)
[2017-07-16] MEDS: COLLAGENASE 30 GM TUBE TOP (09:10)
[2017-07-16] MEDS: ENOXAPARIN 40 MG/0.4 ML SYG SC (09:13)
[2017-07-16] MEDS: POTASSIUM CHLORIDE (SR) 20 MEQ TAB PO (16:07)
[2017-07-16] MEDS: ATORVASTATIN 80 MG TAB PO (21:27)
[2017-07-16] MEDS: HYDROCODONE/APAP (5/325) TAB PO (22:43)
[2017-07-17] MEDS: PANTOPRAZOLE (EC) 40 MG TAB PO (06:12)
[2017-07-17 06:29] LABS: ADD MAN DIFF? NO
[2017-07-17 06:33] LABS: WHITE BLOOD COUNT 12.3 10^3/ul (4.8-10.8)
[2017-07-17 06:33] LABS: ABNORMAL IP MESSAGE 1; BASOPHILS % 0.3 % (0.0-2.0); EOSINOPHILS % 0.2 % (0.0-7.0); HEMATOCRIT 30.7 % (42.0-52.0); HEMOGLOBIN 10.6 g/dl (14.0-18.0); LYMPHOCYTES # 1.7 10^3/ul (0.8-2.9); LYMPHOCYTES % 14.2 % (15.0-51.0); MEAN CORPUSCULAR HEMOGLOBIN 30.2 pg (29.0-33.0); MEAN CORPUSCULAR HGB CONC 34.5 g/dl (32.0-37.0); MEAN CORPUSCULAR VOLUME 87.5 fl (82.0-101.0); MONOCYTE # 1.9 10^3/ul (0.3-0.9); MONOCYTES % 15.7 % (0.0-11.0); NEUTROPHIL # 8.5 10^3/ul (1.6-7.5); NEUTROPHILS % 69.2 % (39.0-77.0); PLATELET COUNT 388 10^3/UL (140-415); POSITIVE DIFF @See below; RED BLOOD COUNT 3.51 10^6/ul (4.70-6.10); RED CELL DISTRIBUTION WIDTH 14.9 % (11.5-14.5)
[2017-07-17 06:54] LABS: ALANINE AMINOTRANSFERASE 79 IU/L (13-69); ALBUMIN 3.1 g/dl (3.3-4.9); ALBUMIN/GLOBULIN RATIO 0.88; ALKALINE PHOSPHATASE 149 IU/L (42-121); ANION GAP 17 (8-16); ASPARTATE AMINO TRANSFERASE 62 IU/L (15-46); BILIRUBIN,INDIRECT 0.5 mg/dl (0-1.1); BILIRUBIN,TOTAL 0.5 mg/dl (0.2-1.3); BLOOD UREA NITROGEN 29 mg/dl (7-20); CALCIUM 8.9 mg/dl (8.4-10.2); CARBON DIOXIDE 24 mmol/L (21-31); CHLORIDE 105 mmol/L (97-110); CREATININE 1.21 mg/dl (0.61-1.24); GLUCOSE 106 mg/dl (70-220); MAGNESIUM 1.9 mg/dl (1.7-2.5); PHOSPHORUS 3.9 mg/dl (2.5-4.9); POTASSIUM 3.8 mmol/L (3.5-5.1); SODIUM 142 mmol/L (135-144); TOTAL PROTEIN 6.6 g/dl (6.1-8.1)
[2017-07-17 07:22] LABS: HEPATITIS B SURFACE ANTIGEN NEGATIVE (NEGATIVE)
[2017-07-17 07:40] LABS: HEPATITIS C VIRAL ANTIBODY NEGATIVE (NEGATIVE)
[2017-07-17] MEDS: MEGESTROL (40 MG/ML) 10ML CUP PO ×2 (09:13→20:49)
[2017-07-17] MEDS: ZINC SULFATE 220 MG CAP PO (09:13)
[2017-07-17] MEDS: ESCITALOPRAM 10 MG TAB PO (09:13)
[2017-07-17] MEDS: CLOPIDOGREL 75 MG TAB PO (09:13)
[2017-07-17] MEDS: NEUTRA-PHOS 250 MG PACKET PO ×2 (09:13→20:48)
[2017-07-17] MEDS: FOLIC ACID 1 MG TAB PO (09:14)
[2017-07-17] MEDS: HYDROCODONE/APAP (5/325) TAB PO ×3 (09:14→23:55)
[2017-07-17] MEDS: FERROUS SULFATE (EC) 325 MG TAB PO ×2 (09:14→20:48)
[2017-07-17] MEDS: METOPROLOL 25 MG TAB PO ×2 (09:14→20:49)
[2017-07-17] MEDS: ASCORBIC ACID 500 MG TAB PO (09:14)
[2017-07-17] MEDS: MULTIVITAMINS THERAPEUTIC TAB PO (09:14)
[2017-07-17] MEDS: FUROSEMIDE 20 MG TAB PO (09:14)
[2017-07-17] MEDS: NYSTATIN 30 GM POWDER BTL TOP ×2 (09:15→20:50)
[2017-07-17] MEDS: COLLAGENASE 30 GM TUBE TOP (09:15)
[2017-07-17] MEDS: ENOXAPARIN 40 MG/0.4 ML SYG SC (09:18)
[2017-07-17] MEDS: ATORVASTATIN 80 MG TAB PO (20:48)
[2017-07-18] MEDS: PANTOPRAZOLE (EC) 40 MG TAB PO (06:06)
[2017-07-18] MEDS: NEUTRA-PHOS 250 MG PACKET PO ×2 (08:14→21:11)
[2017-07-18] MEDS: FOLIC ACID 1 MG TAB PO (08:15)
[2017-07-18] MEDS: MULTIVITAMINS THERAPEUTIC TAB PO (08:15)
[2017-07-18] MEDS: METOPROLOL 25 MG TAB PO (08:15)
[2017-07-18] MEDS: FUROSEMIDE 20 MG TAB PO (08:15)
[2017-07-18] MEDS: ZINC SULFATE 220 MG CAP PO (08:15)
[2017-07-18] MEDS: ASCORBIC ACID 500 MG TAB PO (08:16)
[2017-07-18] MEDS: ESCITALOPRAM 10 MG TAB PO (08:16)
[2017-07-18] MEDS: FERROUS SULFATE (EC) 325 MG TAB PO ×2 (08:16→21:12)
[2017-07-18] MEDS: MEGESTROL (40 MG/ML) 10ML CUP PO ×2 (08:16→21:11)
[2017-07-18] MEDS: CLOPIDOGREL 75 MG TAB PO (08:16)
[2017-07-18] MEDS: HYDROCODONE/APAP (5/325) TAB PO ×3 (08:16→21:13)
[2017-07-18] MEDS: ENOXAPARIN 40 MG/0.4 ML SYG SC (08:22)
[2017-07-18] MEDS: NYSTATIN 30 GM POWDER BTL TOP ×2 (08:24→21:20)
[2017-07-18] MEDS: COLLAGENASE 30 GM TUBE TOP (08:24)
[2017-07-18] MEDS: AMLODIPINE 2.5 MG TAB PO (16:46)
[2017-07-18] MEDS: LORAZEPAM 0.5 MG TAB PO (17:12)
[2017-07-18] MEDS: METOPROLOL (XL) 25 MG TAB PO (21:12)
[2017-07-18] MEDS: ATORVASTATIN 80 MG TAB PO (21:13)
[2017-07-19] MEDS: PANTOPRAZOLE (EC) 40 MG TAB PO (06:46)
[2017-07-19 07:54] LABS: ADD MAN DIFF? NO
[2017-07-19 08:05] LABS: ABNORMAL IP MESSAGE 1; BASOPHILS % 0.3 % (0.0-2.0); EOSINOPHILS % 0.3 % (0.0-7.0); HEMATOCRIT 30.5 % (42.0-52.0); HEMOGLOBIN 10.2 g/dl (14.0-18.0); LYMPHOCYTES # 1.6 10^3/ul (0.8-2.9); LYMPHOCYTES % 13.7 % (15.0-51.0); MEAN CORPUSCULAR HEMOGLOBIN 29.8 pg (29.0-33.0); MEAN CORPUSCULAR HGB CONC 33.4 g/dl (32.0-37.0); MEAN CORPUSCULAR VOLUME 89.2 fl (82.0-101.0); MEAN PLATELET VOLUME 11.2 fl (7.4-10.4); MONOCYTE # 1.8 10^3/ul (0.3-0.9); MONOCYTES % 15.5 % (0.0-11.0); NEUTROPHIL # 8.1 10^3/ul (1.6-7.5); NEUTROPHILS % 69.8 % (39.0-77.0); PLATELET COUNT 375 10^3/UL (140-415); POSITIVE DIFF @See below; RED BLOOD COUNT 3.42 10^6/ul (4.70-6.10); RED CELL DISTRIBUTION WIDTH 14.7 % (11.5-14.5)
[2017-07-19 08:05] LABS: WHITE BLOOD COUNT 11.6 10^3/ul (4.8-10.8)
[2017-07-19 08:32] LABS: ALANINE AMINOTRANSFERASE 70 IU/L (13-69); ALBUMIN 3.1 g/dl (3.3-4.9); ALBUMIN/GLOBULIN RATIO 0.83; ALKALINE PHOSPHATASE 140 IU/L (42-121); ANION GAP 15 (8-16); ASPARTATE AMINO TRANSFERASE 59 IU/L (15-46); BILIRUBIN,INDIRECT 0.4 mg/dl (0-1.1); BILIRUBIN,TOTAL 0.4 mg/dl (0.2-1.3); BLOOD UREA NITROGEN 30 mg/dl (7-20); CALCIUM 8.7 mg/dl (8.4-10.2); CARBON DIOXIDE 28 mmol/L (21-31); CHLORIDE 102 mmol/L (97-110); CREATININE 1.26 mg/dl (0.61-1.24); GLUCOSE 89 mg/dl (70-220); POTASSIUM 3.6 mmol/L (3.5-5.1); SODIUM 141 mmol/L (135-144); TOTAL PROTEIN 6.8 g/dl (6.1-8.1)
[2017-07-19 08:37] LABS: PHOSPHORUS 3.8 mg/dl (2.5-4.9)
[2017-07-19 08:37] LABS: MAGNESIUM 1.8 mg/dl (1.7-2.5)
[2017-07-19] MEDS: NEUTRA-PHOS 250 MG PACKET PO (09:47)
[2017-07-19] MEDS: MEGESTROL (40 MG/ML) 10ML CUP PO (09:47)
[2017-07-19] MEDS: ZINC SULFATE 220 MG CAP PO (09:47)
[2017-07-19] MEDS: FOLIC ACID 1 MG TAB PO (09:48)
[2017-07-19] MEDS: FERROUS SULFATE (EC) 325 MG TAB PO (09:48)
[2017-07-19] MEDS: AMLODIPINE 2.5 MG TAB PO (09:48)
[2017-07-19] MEDS: METOPROLOL (XL) 25 MG TAB PO (09:48)
[2017-07-19] MEDS: MULTIVITAMINS THERAPEUTIC TAB PO (09:48)
[2017-07-19] MEDS: ASCORBIC ACID 500 MG TAB PO (09:48)
[2017-07-19] MEDS: FUROSEMIDE 20 MG TAB PO (09:48)
[2017-07-19] MEDS: ESCITALOPRAM 10 MG TAB PO (09:49)
[2017-07-19] MEDS: NYSTATIN 30 GM POWDER BTL TOP (09:50)
[2017-07-19] MEDS: COLLAGENASE 30 GM TUBE TOP (09:50)
== END 2017-07-19 15:00 | DRG 560 ==
LOC: VRC 18:04
PROC: F07Z5ZZ Bed Mobility Treatment (ICD-10-PCS; principal; 2017-07-09)
PROC: F08Z2ZZ Grooming/Personal Hygiene Treatment (ICD-10-PCS; 2017-07-09)
PROC: F06Z6ZZ Communicative/Cognitive Integration Skills Treatment (ICD-10-PCS; 2017-07-09)
DX: S72.144D Nondisplaced intertrochanteric fracture of right femur, subsequent encounter for closed fracture with routine healing (principal); I13.0 Hypertensive heart and chronic kidney disease with heart failure and stage 1 through stage 4 chronic kidney disease, or unspecified chronic kidney disease; N17.9 Acute kidney failure, unspecified; R52 Pain, unspecified; I73.9 Peripheral vascular disease, unspecified; I25.10 Atherosclerotic heart disease of native coronary artery without angina pectoris; I11.0 Hypertensive heart disease with heart failure; I50.9 Heart failure, unspecified; J44.9 Chronic obstructive pulmonary disease, unspecified; N18.9 Chronic kidney disease, unspecified; E78.5 Hyperlipidemia, unspecified; F32.9 Major depressive disorder, single episode, unspecified; R13.10 Dysphagia, unspecified; D64.9 Anemia, unspecified; F17.200 Nicotine dependence, unspecified, uncomplicated; R53.81 Other malaise; F06.31 Mood disorder due to known physiological condition with depressive features; F06.8 Other specified mental disorders due to known physiological condition; W18.30XD Fall on same level, unspecified, subsequent encounter
CPT/HCPCS: 71045; 76705; 80053; 81001; 83735; 84100; 85025; 86803; 87040; 87081; 87086; 87340; 92610; 93880; 97110; 97116; 97150; 97163; 97167; 97530; 97535; 97542

== ENCOUNTER 2017-08-11 16:11 | Emergency (ER) | payer MEDICARE | END 2017-08-11 19:25 | disposition home or self-care (01) | LOC: E/R 16:11 | DX: S00.03XA Contusion of scalp, initial encounter (principal); I10 Essential (primary) hypertension; I25.10 Atherosclerotic heart disease of native coronary artery without angina pectoris; R40.2142 Coma scale, eyes open, spontaneous, at arrival to emergency department; R40.2252 Coma scale, best verbal response, oriented, at arrival to emergency department; R40.2362 Coma scale, best motor response, obeys commands, at arrival to emergency department; J44.9 Chronic obstructive pulmonary disease, unspecified; X58.XXXA Exposure to other specified factors, initial encounter; Y92.9 Unspecified place or not applicable; Z87.891 Personal history of nicotine dependence | CPT/HCPCS: 70450; 99284-25 ==

== ENCOUNTER 2017-08-17 16:58 | Inpatient (IN) | payer MEDICARE, OTHER ==
[2017-08-17] MEDS: FUROSEMIDE 40 MG INJ IV ×2 (17:44→20:06)
[2017-08-17 17:53] LABS: ADD MAN DIFF? NO
[2017-08-17 17:55] LABS: BASOPHILS % 0.2 % (0.0-2.0); EOSINOPHILS # 0.1 10^3/ul (0.0-0.5); EOSINOPHILS % 0.6 % (0.0-7.0); HEMATOCRIT 30.9 % (42.0-52.0); HEMOGLOBIN 9.9 g/dl (14.0-18.0); LYMPHOCYTES # 1.5 10^3/ul (0.8-2.9); MEAN CORPUSCULAR HEMOGLOBIN 29.9 pg (29.0-33.0); MEAN CORPUSCULAR VOLUME 93.4 fl (82.0-101.0); MEAN PLATELET VOLUME 10.4 fl (7.4-10.4); MONOCYTE # 1.2 10^3/ul (0.3-0.9); MONOCYTES % 13.8 % (0.0-11.0); NEUTROPHIL # 6.1 10^3/ul (1.6-7.5); NEUTROPHILS % 67.6 % (39.0-77.0); PLATELET COUNT 285 10^3/UL (140-415); RED BLOOD COUNT 3.31 10^6/ul (4.70-6.10); RED CELL DISTRIBUTION WIDTH 18.3 % (11.5-14.5)
[2017-08-17 18:10] LABS: LACTIC ACID 1.5 mmol/L (0.5-2.0)
[2017-08-17 18:12] LABS: ALANINE AMINOTRANSFERASE 58 IU/L (13-69); ALBUMIN 3.1 g/dl (3.3-4.9); ALBUMIN/GLOBULIN RATIO 0.86; ALKALINE PHOSPHATASE 179 IU/L (42-121); ANION GAP 16 (8-16); ASPARTATE AMINO TRANSFERASE 56 IU/L (15-46); BILIRUBIN,INDIRECT 0.2 mg/dl (0-1.1); BILIRUBIN,TOTAL 0.2 mg/dl (0.2-1.3); BLOOD UREA NITROGEN 32 mg/dl (7-20); CALCIUM 8.4 mg/dl (8.4-10.2); CARBON DIOXIDE 26 mmol/L (21-31); CHLORIDE 99 mmol/L (97-110); CREATININE 1.44 mg/dl (0.61-1.24); GLUCOSE 88 mg/dl (70-220); POTASSIUM 3.9 mmol/L (3.5-5.1); SODIUM 137 mmol/L (135-144); TOTAL PROTEIN 6.7 g/dl (6.1-8.1)
[2017-08-17 18:13] LABS: INR 1.21; PROTIME 15.5 Sec (11.9-14.9); PT RATIO 1.2
[2017-08-17 18:14] LABS: PARTIAL THROMBOPLASTIN TIME 38.3 Sec (25.0-35.0)
[2017-08-17 18:24] LABS: TROPONIN-I 0.061 ng/ml (0.000-0.120)
[2017-08-17] MEDS ORDERED: ACETAMINOPHEN 325 MG TAB PO ×4 (19:00→19:30)
[2017-08-17] MEDS ORDERED: ONDANSETRON 4 MG INJ IV ×2 (19:00→19:30)
[2017-08-17] MEDS ORDERED: MAGNESIUM HYDROXIDE 30ML CUP PO (19:00)
[2017-08-17] MEDS ORDERED: HYDROCODONE/APAP (5/325) TAB PO ×2 (19:00)
[2017-08-17] MEDS ORDERED: DOCUSATE SODIUM 100 MG CAP PO (19:00)
[2017-08-17] MEDS ORDERED: BISACODYL 10 MG SUPP PR (19:00)
[2017-08-17] MEDS ORDERED: NITROGLYCERIN (SL) 0.4 MG TAB SL (19:00)
[2017-08-17] MEDS ORDERED: LACTULOSE 30ML CUP PO (19:00)
[2017-08-17] MEDS ORDERED: NACL 0.9% 3 ML SYG IV (19:00)
[2017-08-17] MEDS: FERROUS SULFATE (EC) 325 MG TAB PO (20:37)
[2017-08-17] MEDS: ATORVASTATIN 80 MG TAB PO (20:37)
[2017-08-17] MEDS: METOPROLOL 25 MG TAB PO (20:38)
[2017-08-17] MEDS: HEPARIN 5,000 UNIT/0.5 ML VIAL SC (20:51)
[2017-08-17] MEDS: morphine 2 MG INJ IV (20:58)
[2017-08-17] MEDS: LORAZEPAM 0.5 MG TAB PO (21:10)
[2017-08-17] MEDS: ALBUTEROL/IPRATROPIUM (NEB) 3 ML AMP HHN (21:23)
[2017-08-17] MEDS ORDERED: LORAZEPAM 0.5 MG TAB PO (21:30)
[2017-08-17] MEDS: LORAZEPAM 2 MG INJ IV ×2 (21:39→23:43)
[2017-08-17 22:05] LABS: LACTIC ACID 1.8 mmol/L (0.5-2.0)
[2017-08-18] MEDS: FUROSEMIDE 40 MG INJ IV (05:33)
[2017-08-18] MEDS: PANTOPRAZOLE (EC) 40 MG TAB PO (05:34)
[2017-08-18 07:02] LABS: ADD MAN DIFF? NO
[2017-08-18 07:10] LABS: ABNORMAL IP MESSAGE 1; BASOPHILS % 0.2 % (0.0-2.0); HEMATOCRIT 31.8 % (42.0-52.0); HEMOGLOBIN 10.6 g/dl (14.0-18.0); LYMPHOCYTES # 1.1 10^3/ul (0.8-2.9); LYMPHOCYTES % 8.4 % (15.0-51.0); MEAN CORPUSCULAR HEMOGLOBIN 30.6 pg (29.0-33.0); MEAN CORPUSCULAR HGB CONC 33.3 g/dl (32.0-37.0); MEAN CORPUSCULAR VOLUME 91.9 fl (82.0-101.0); MEAN PLATELET VOLUME 10.3 fl (7.4-10.4); MONOCYTE # 1.7 10^3/ul (0.3-0.9); MONOCYTES % 13.2 % (0.0-11.0); NEUTROPHIL # 9.9 10^3/ul (1.6-7.5); NEUTROPHILS % 77.5 % (39.0-77.0); PLATELET COUNT 313 10^3/UL (140-415); POSITIVE DIFF @See below; RED BLOOD COUNT 3.46 10^6/ul (4.70-6.10)
[2017-08-18 07:10] LABS: WHITE BLOOD COUNT 12.7 10^3/ul (4.8-10.8)
[2017-08-18 07:37] LABS: HEMOGLOBIN A1C 5.1 % (0-5.9)
[2017-08-18] MEDS: ALBUTEROL/IPRATROPIUM (NEB) 3 ML AMP HHN ×4 (07:43→20:33)
[2017-08-18 07:52] LABS: ALANINE AMINOTRANSFERASE 58 IU/L (13-69); ALBUMIN/GLOBULIN RATIO 0.83; ALKALINE PHOSPHATASE 186 IU/L (42-121); ANION GAP 18 (8-16); ASPARTATE AMINO TRANSFERASE 55 IU/L (15-46); BILIRUBIN,INDIRECT 0.4 mg/dl (0-1.1); BILIRUBIN,TOTAL 0.4 mg/dl (0.2-1.3); BLOOD UREA NITROGEN 32 mg/dl (7-20); CALCIUM 8.8 mg/dl (8.4-10.2); CARBON DIOXIDE 26 mmol/L (21-31); CHLORIDE 100 mmol/L (97-110); CREATININE 1.44 mg/dl (0.61-1.24); GLUCOSE 80 mg/dl (70-220); SODIUM 141 mmol/L (135-144); TOTAL PROTEIN 6.6 g/dl (6.1-8.1)
[2017-08-18] MEDS: morphine 2 MG INJ IV ×2 (08:22→15:37)
[2017-08-18] MEDS: LORAZEPAM 2 MG INJ IV ×2 (08:22→14:29)
[2017-08-18] MEDS: ASCORBIC ACID 500 MG TAB PO (09:00)
[2017-08-18] MEDS: FOLIC ACID 1 MG TAB PO (09:00)
[2017-08-18] MEDS: ZINC SULFATE 220 MG CAP PO (09:00)
[2017-08-18] MEDS: ESCITALOPRAM 10 MG TAB PO (09:00)
[2017-08-18] MEDS: FERROUS SULFATE (EC) 325 MG TAB PO ×3 (09:00→21:00)
[2017-08-18] MEDS: MULTIVITAMINS THERAPEUTIC TAB PO (09:00)
[2017-08-18] MEDS: CLOPIDOGREL 75 MG TAB PO (09:00)
[2017-08-18] MEDS: METOPROLOL 25 MG TAB PO ×2 (09:00→21:00)
[2017-08-18] MEDS: HEPARIN 5,000 UNIT/0.5 ML VIAL SC ×2 (13:45→22:29)
[2017-08-18] MEDS: MAGNESIUM SULFATE 2 GM/50 ML 50 ML IVPB (14:21)
[2017-08-18] MEDS: POTASSIUM CHLORIDE 100 ML IVPB ×3 (14:53→22:28)
[2017-08-18] MEDS: DILTIAZEM 25 MG INJ IV (14:54)
[2017-08-18] MEDS: ATORVASTATIN 80 MG TAB PO (21:00)
[2017-08-18 22:38] LABS: AADO2 Arterial 108.6 mmHg (7.0-24.0); Allen Test ACCEPTAB; Arterial Base Excess 1.6 mmol/L (-3.0-3); Arterial Blood Gas Oxygen Sat 96.7 mmHG (95.0-100.0); Arterial COHb 0.4 % (0.0-3.0); Arterial Fraction of Oxyhgb 95.9 % (93.0-99.0); Arterial HCO3 24.4 mmol/L (22.0-26.0); Arterial MetHb 0.4 % (0.0-1.5); Arterial Total Hemglobin 11.4 g/dl (12.0-18.0); Arterial pCO2 32.1 mmhg (35-45); MODE NASAL CANNULA; Site Left Radial
[2017-08-19] MEDS: morphine 2 MG INJ IV ×4 (00:53→21:56)
[2017-08-19] MEDS: DEXTROSE 5%-0.45% NACL 1,000 ML IV ×2 (00:54→23:00)
[2017-08-19] MEDS: HALOPERIDOL 5 MG INJ IM ×2 (01:54→20:22)
[2017-08-19] MEDS: hydrALAzine 20 MG INJ IV (02:49)
[2017-08-19] MEDS: PANTOPRAZOLE (EC) 40 MG TAB PO (06:00)
[2017-08-19 07:27] LABS: ADD MAN DIFF? NO
[2017-08-19 07:30] LABS: ABNORMAL IP MESSAGE 1; HEMATOCRIT 30.6 % (42.0-52.0); HEMOGLOBIN 10.1 g/dl (14.0-18.0); LYMPHOCYTES # 0.6 10^3/ul (0.8-2.9); LYMPHOCYTES % 6.5 % (15.0-51.0); MEAN CORPUSCULAR HEMOGLOBIN 29.9 pg (29.0-33.0); MEAN CORPUSCULAR VOLUME 90.5 fl (82.0-101.0); MEAN PLATELET VOLUME 10.6 fl (7.4-10.4); MONOCYTE # 1.2 10^3/ul (0.3-0.9); MONOCYTES % 13.4 % (0.0-11.0); NEUTROPHIL # 7.3 10^3/ul (1.6-7.5); NEUTROPHILS % 79.4 % (39.0-77.0); PLATELET COUNT 296 10^3/UL (140-415); POSITIVE DIFF @See below; RED BLOOD COUNT 3.38 10^6/ul (4.70-6.10); RED CELL DISTRIBUTION WIDTH 18.6 % (11.5-14.5)
[2017-08-19 07:30] LABS: WHITE BLOOD COUNT 9.1 10^3/ul (4.8-10.8)
[2017-08-19] MEDS: ALBUTEROL/IPRATROPIUM (NEB) 3 ML AMP HHN ×4 (07:44→20:11)
[2017-08-19 07:56] LABS: CREATINE KINASE 1007 IU/L (23-200)
[2017-08-19] MEDS: FOLIC ACID 1 MG TAB PO (08:01)
[2017-08-19] MEDS: FERROUS SULFATE (EC) 325 MG TAB PO ×3 (08:01→20:24)
[2017-08-19] MEDS: METOPROLOL 25 MG TAB PO ×2 (08:01→20:24)
[2017-08-19] MEDS: ESCITALOPRAM 10 MG TAB PO (08:01)
[2017-08-19] MEDS: ASCORBIC ACID 500 MG TAB PO (08:02)
[2017-08-19] MEDS: CLOPIDOGREL 75 MG TAB PO (08:02)
[2017-08-19] MEDS: MULTIVITAMINS THERAPEUTIC TAB PO (08:02)
[2017-08-19] MEDS: ZINC SULFATE 220 MG CAP PO (08:02)
[2017-08-19 08:09] LABS: CK INDEX 1.2
[2017-08-19 08:10] LABS: ALANINE AMINOTRANSFERASE 55 IU/L (13-69); ALBUMIN 2.4 g/dl (3.3-4.9); ALBUMIN/GLOBULIN RATIO 0.77; ALKALINE PHOSPHATASE 133 IU/L (42-121); ANION GAP 17 (8-16); ASPARTATE AMINO TRANSFERASE 97 IU/L (15-46); BILIRUBIN,INDIRECT 0.3 mg/dl (0-1.1); BILIRUBIN,TOTAL 0.3 mg/dl (0.2-1.3); BLOOD UREA NITROGEN 38 mg/dl (7-20); CALCIUM 8.4 mg/dl (8.4-10.2); CARBON DIOXIDE 27 mmol/L (21-31); CHLORIDE 105 mmol/L (97-110); CHOL/HDL RATIO 2.3 RATIO; CHOLESTEROL 74 mg/dl (100-200); GLUCOSE 132 mg/dl (70-220); HDL CHOLESTEROL 32 mg/dl (31-75); LDL CHOLESTEROL,CALCULATED 29 mg/dl; MAGNESIUM 2.3 mg/dl (1.7-2.5); POTASSIUM 3.6 mmol/L (3.5-5.1); SODIUM 145 mmol/L (135-144); TOTAL PROTEIN 5.5 g/dl (6.1-8.1); TRIGLYCERIDES 64 mg/dl (0-149)
[2017-08-19] MEDS: FUROSEMIDE 40 MG INJ IV (09:00)
[2017-08-19] MEDS ORDERED: ASPIRIN 300 MG SUPP PR (09:00)
[2017-08-19] MEDS: HEPARIN 5,000 UNIT/0.5 ML VIAL SC (09:03)
[2017-08-19] MEDS: ENOXAPARIN 80 MG/0.8 ML SYG SC (09:52)
[2017-08-19] MEDS: LORAZEPAM 2 MG INJ IV ×2 (09:55→22:59)
[2017-08-19 09:57] LABS: B-TYPE NATRIURETIC PEPTIDE 74300 PG/ML (0-450)
[2017-08-19] MEDS: ASPIRIN 300 MG SUPP PR (10:47)
[2017-08-19] MEDS: ENOXAPARIN 40 MG/0.4 ML SYG SC (13:40)
[2017-08-19] MEDS: DIGOXIN 500 MCG INJ IV (14:09)
[2017-08-19] MEDS: POTASSIUM CHLORIDE 100 ML IVPB ×2 (14:41→16:46)
[2017-08-19] MEDS ORDERED: ENOXAPARIN 60 MG/0.6 ML SYG SC (17:29)
[2017-08-19] MEDS: COLLAGENASE 5 GM (UD JAR) TOP (17:52)
[2017-08-19] MEDS: BALSAM PERU/CASTOR OIL 60 GM TUBE TOP (17:52)
[2017-08-19] MEDS: ATORVASTATIN 80 MG TAB PO (20:24)
[2017-08-20 05:21] LABS: ADD MAN DIFF? NO
[2017-08-20 05:27] LABS: WHITE BLOOD COUNT 13.5 10^3/ul (4.8-10.8)
[2017-08-20 05:27] LABS: BASOPHILS % 0.1 % (0.0-2.0); HEMATOCRIT 31.2 % (42.0-52.0); LYMPHOCYTES # 0.6 10^3/ul (0.8-2.9); LYMPHOCYTES % 4.7 % (15.0-51.0); MEAN CORPUSCULAR HEMOGLOBIN 29.5 pg (29.0-33.0); MEAN CORPUSCULAR HGB CONC 32.1 g/dl (32.0-37.0); MEAN PLATELET VOLUME 10.4 fl (7.4-10.4); MONOCYTE # 1.2 10^3/ul (0.3-0.9); MONOCYTES % 9.1 % (0.0-11.0); NEUTROPHIL # 11.5 10^3/ul (1.6-7.5); NEUTROPHILS % 84.8 % (39.0-77.0); PLATELET COUNT 279 10^3/UL (140-415); RED BLOOD COUNT 3.39 10^6/ul (4.70-6.10); RED CELL DISTRIBUTION WIDTH 18.5 % (11.5-14.5)
[2017-08-20 05:40] LABS: CREATINE KINASE 453 IU/L (23-200)
[2017-08-20 05:52] LABS: CK INDEX 1.3
[2017-08-20 05:54] LABS: CK-MB 5.86 ng/ml (0.0-2.4)
[2017-08-20] MEDS: PANTOPRAZOLE (EC) 40 MG TAB PO (06:00)
[2017-08-20 06:16] LABS: ALANINE AMINOTRANSFERASE 59 IU/L (13-69); ALBUMIN 2.5 g/dl (3.3-4.9); ALKALINE PHOSPHATASE 137 IU/L (42-121); ANION GAP 14 (8-16); ASPARTATE AMINO TRANSFERASE 90 IU/L (15-46); BILIRUBIN,INDIRECT 0.4 mg/dl (0-1.1); BILIRUBIN,TOTAL 0.4 mg/dl (0.2-1.3); BLOOD UREA NITROGEN 34 mg/dl (7-20); CALCIUM 8.1 mg/dl (8.4-10.2); CARBON DIOXIDE 32 mmol/L (21-31); CHLORIDE 106 mmol/L (97-110); CREATININE 1.14 mg/dl (0.61-1.24); GLUCOSE 109 mg/dl (70-220); MAGNESIUM 2.3 mg/dl (1.7-2.5); SODIUM 149 mmol/L (135-144); TOTAL PROTEIN 5.6 g/dl (6.1-8.1)
[2017-08-20] MEDS: ALBUTEROL/IPRATROPIUM (NEB) 3 ML AMP HHN ×4 (08:10→21:00)
[2017-08-20] MEDS: FOLIC ACID 1 MG TAB PO (08:36)
[2017-08-20] MEDS: FERROUS SULFATE (EC) 325 MG TAB PO ×3 (08:36→21:00)
[2017-08-20] MEDS: ESCITALOPRAM 10 MG TAB PO (08:36)
[2017-08-20] MEDS: ZINC SULFATE 220 MG CAP PO (08:37)
[2017-08-20] MEDS: METOPROLOL 25 MG TAB PO ×2 (08:37→21:00)
[2017-08-20] MEDS: MULTIVITAMINS THERAPEUTIC TAB PO (08:37)
[2017-08-20] MEDS: ASCORBIC ACID 500 MG TAB PO (08:37)
[2017-08-20] MEDS: CLOPIDOGREL 75 MG TAB PO (08:37)
[2017-08-20] MEDS: BALSAM PERU/CASTOR OIL 60 GM TUBE TOP (08:38)
[2017-08-20] MEDS: COLLAGENASE 5 GM (UD JAR) TOP (08:38)
[2017-08-20] MEDS: ENOXAPARIN 60 MG/0.6 ML SYG SC (08:42)
[2017-08-20] MEDS: PIPER-TAZO 3.375 GM IV (PMX) 100 ML IVPB ×2 (13:31→21:45)
[2017-08-20] MEDS: DEXTROSE 5%-0.45% NACL 1,000 ML IV (13:32)
[2017-08-20] MEDS: morphine 2 MG INJ IV ×2 (13:35→18:26)
[2017-08-20] MEDS: POTASSIUM CHLORIDE 100 ML IVPB ×2 (15:24→17:21)
[2017-08-20] MEDS: LORAZEPAM 2 MG INJ IV (18:59)
[2017-08-20] MEDS: ATORVASTATIN 80 MG TAB PO (21:00)
[2017-08-21] MEDS: hydrALAzine 20 MG INJ IV (00:37)
[2017-08-21] MEDS: morphine 2 MG INJ IV ×4 (00:48→21:11)
[2017-08-21] MEDS: LORAZEPAM 2 MG INJ IV ×3 (01:22→20:18)
[2017-08-21] MEDS: PIPER-TAZO 3.375 GM IV (PMX) 100 ML IVPB ×3 (05:20→22:04)
[2017-08-21] MEDS: PANTOPRAZOLE (EC) 40 MG TAB PO (05:20)
[2017-08-21] MEDS: ASCORBIC ACID 500 MG TAB PO (09:00)
[2017-08-21] MEDS: METOPROLOL 25 MG TAB PO ×2 (09:00→21:12)
[2017-08-21] MEDS: MULTIVITAMINS THERAPEUTIC TAB PO (09:00)
[2017-08-21] MEDS: COLLAGENASE 5 GM (UD JAR) TOP (09:00)
[2017-08-21] MEDS: ZINC SULFATE 220 MG CAP PO (09:00)
[2017-08-21] MEDS: ESCITALOPRAM 10 MG TAB PO (09:00)
[2017-08-21] MEDS: CLOPIDOGREL 75 MG TAB PO (09:00)
[2017-08-21] MEDS: FOLIC ACID 1 MG TAB PO (09:00)
[2017-08-21] MEDS: FERROUS SULFATE (EC) 325 MG TAB PO ×3 (09:00→21:12)
[2017-08-21] MEDS: ALBUTEROL/IPRATROPIUM (NEB) 3 ML AMP HHN ×4 (09:00→21:23)
[2017-08-21 09:14] LABS: ADD MAN DIFF? NO
[2017-08-21 09:18] LABS: BASOPHILS % 0.1 % (0.0-2.0); EOSINOPHILS % 0.1 % (0.0-7.0); HEMATOCRIT 32.5 % (42.0-52.0); HEMOGLOBIN 10.4 g/dl (14.0-18.0); LYMPHOCYTES # 0.9 10^3/ul (0.8-2.9); LYMPHOCYTES % 5.9 % (15.0-51.0); MEAN CORPUSCULAR HEMOGLOBIN 29.9 pg (29.0-33.0); MEAN CORPUSCULAR VOLUME 93.4 fl (82.0-101.0); MEAN PLATELET VOLUME 10.6 fl (7.4-10.4); MONOCYTE # 0.9 10^3/ul (0.3-0.9); MONOCYTES % 6.3 % (0.0-11.0); NEUTROPHIL # 12.7 10^3/ul (1.6-7.5); NEUTROPHILS % 86.2 % (39.0-77.0); PLATELET COUNT 234 10^3/UL (140-415); RED BLOOD COUNT 3.48 10^6/ul (4.70-6.10); RED CELL DISTRIBUTION WIDTH 18.7 % (11.5-14.5)
[2017-08-21 09:18] LABS: WHITE BLOOD COUNT 14.7 10^3/ul (4.8-10.8)
[2017-08-21] MEDS: ENOXAPARIN 60 MG/0.6 ML SYG SC (09:29)
[2017-08-21 09:39] LABS: MAGNESIUM 2.3 mg/dl (1.7-2.5)
[2017-08-21 09:44] LABS: ANION GAP 11 (8-16); BLOOD UREA NITROGEN 27 mg/dl (7-20); CALCIUM 8.2 mg/dl (8.4-10.2); CARBON DIOXIDE 31 mmol/L (21-31); CHLORIDE 113 mmol/L (97-110); CREATININE 1.05 mg/dl (0.61-1.24); GLUCOSE 161 mg/dl (70-220); POTASSIUM 3.1 mmol/L (3.5-5.1); SODIUM 152 mmol/L (135-144)
[2017-08-21] MEDS: BALSAM PERU/CASTOR OIL 60 GM TUBE TOP (09:55)
[2017-08-21] MEDS: POTASSIUM CHLORIDE 100 ML IVPB ×2 (17:35→20:20)
[2017-08-21] MEDS ORDERED: VANCOMYCIN IV PER PHARMACY XX (18:00)
[2017-08-21] MEDS: VANCOMYCIN 1.25 GM in SOD CHLORIDE 0.9% 250 ML IVPB (21:04)
[2017-08-21] MEDS: ATORVASTATIN 80 MG TAB PO (21:12)
[2017-08-21] MEDS: DEXTROSE 5%-0.45% NACL 1,000 ML IV (23:00)
[2017-08-22] MEDS: DEXTROSE 5%-0.45% NACL 1,000 ML IV
[2017-08-22] MEDS: HALOPERIDOL 5 MG INJ IM
[2017-08-22] MEDS: LORAZEPAM 2 MG INJ IV ×3 (01:07→12:56)
[2017-08-22] MEDS: morphine 2 MG INJ IV ×2 (01:47→09:25)
[2017-08-22] MEDS: PIPER-TAZO 3.375 GM IV (PMX) 100 ML IVPB (05:44)
[2017-08-22] MEDS: PANTOPRAZOLE (EC) 40 MG TAB PO (05:44)
[2017-08-22 09:02] LABS: ADD MAN DIFF? NO
[2017-08-22] MEDS: ALBUTEROL/IPRATROPIUM (NEB) 3 ML AMP HHN ×5 (09:05→20:54)
[2017-08-22 09:11] LABS: WHITE BLOOD COUNT 15.3 10^3/ul (4.8-10.8)
[2017-08-22 09:11] LABS: BASOPHILS % 0.3 % (0.0-2.0); EOSINOPHILS % 0.1 % (0.0-7.0); HEMATOCRIT 34.2 % (42.0-52.0); HEMOGLOBIN 10.7 g/dl (14.0-18.0); LYMPHOCYTES # 1.3 10^3/ul (0.8-2.9); LYMPHOCYTES % 8.5 % (15.0-51.0); MEAN CORPUSCULAR HEMOGLOBIN 29.7 pg (29.0-33.0); MEAN CORPUSCULAR HGB CONC 31.3 g/dl (32.0-37.0); MEAN PLATELET VOLUME 11.3 fl (7.4-10.4); MONOCYTE # 1.1 10^3/ul (0.3-0.9); MONOCYTES % 7.2 % (0.0-11.0); NEUTROPHIL # 12.3 10^3/ul (1.6-7.5); NEUTROPHILS % 80.1 % (39.0-77.0); NUCLEATED RED BLOOD CELLS% 0.1 /100WBC (0.0-0.0); PLATELET COUNT 230 10^3/UL (140-415); RED CELL DISTRIBUTION WIDTH 18.7 % (11.5-14.5)
[2017-08-22] MEDS: MULTIVITAMINS THERAPEUTIC TAB PO (09:22)
[2017-08-22] MEDS: FERROUS SULFATE (EC) 325 MG TAB PO ×3 (09:22→20:14)
[2017-08-22 09:23] LABS: PHOSPHORUS 3.2 mg/dl (2.5-4.9)
[2017-08-22 09:23] LABS: MAGNESIUM 2.3 mg/dl (1.7-2.5)
[2017-08-22] MEDS: ESCITALOPRAM 10 MG TAB PO (09:23)
[2017-08-22] MEDS: CLOPIDOGREL 75 MG TAB PO (09:23)
[2017-08-22] MEDS: ASCORBIC ACID 500 MG TAB PO (09:23)
[2017-08-22] MEDS: ZINC SULFATE 220 MG CAP PO (09:23)
[2017-08-22] MEDS: COLLAGENASE 5 GM (UD JAR) TOP (09:23)
[2017-08-22] MEDS: FOLIC ACID 1 MG TAB PO (09:23)
[2017-08-22] MEDS: ENOXAPARIN 60 MG/0.6 ML SYG SC (09:24)
[2017-08-22] MEDS: BALSAM PERU/CASTOR OIL 60 GM TUBE TOP (09:24)
[2017-08-22] MEDS: METOPROLOL 25 MG TAB PO ×2 (09:25→20:15)
[2017-08-22 09:36] LABS: ALANINE AMINOTRANSFERASE 59 IU/L (13-69); ALBUMIN 2.6 g/dl (3.3-4.9); ALBUMIN/GLOBULIN RATIO 0.78; ALKALINE PHOSPHATASE 137 IU/L (42-121); ANION GAP 13 (8-16); ASPARTATE AMINO TRANSFERASE 67 IU/L (15-46); BILIRUBIN,INDIRECT 0.6 mg/dl (0-1.1); BILIRUBIN,TOTAL 0.6 mg/dl (0.2-1.3); BLOOD UREA NITROGEN 25 mg/dl (7-20); CALCIUM 8.3 mg/dl (8.4-10.2); CARBON DIOXIDE 29 mmol/L (21-31); CHLORIDE 117 mmol/L (97-110); CREATININE 1.25 mg/dl (0.61-1.24); GLUCOSE 111 mg/dl (70-220); POTASSIUM 3.3 mmol/L (3.5-5.1); SODIUM 156 mmol/L (135-144); TOTAL PROTEIN 5.9 g/dl (6.1-8.1)
[2017-08-22] MEDS: POTASSIUM CHLORIDE 100 ML IVPB (12:00)
[2017-08-22] MEDS: morphine LIQ (20 MG/ML PO SYG) SL ×2 (12:56→20:16)
[2017-08-22] MEDS: DEXTROSE 5% 1,000 ML IV (12:56)
[2017-08-22] MEDS: MEROPENEM 500MG/50 ML (PMX) 50 ML IVPB ×2 (13:31→20:17)
[2017-08-22] MEDS: VANCOMYCIN 1 GM 250 ML IVPB (19:28)
[2017-08-22] MEDS: ATORVASTATIN 80 MG TAB PO (20:14)
[2017-08-23] MEDS: PANTOPRAZOLE (EC) 40 MG TAB PO (04:16)
[2017-08-23 06:27] LABS: ADD MAN DIFF? NO; BASOPHILS % 0.1 % (0.0-2.0); EOSINOPHILS # 0.1 10^3/ul (0.0-0.5); EOSINOPHILS % 0.3 % (0.0-7.0); HEMATOCRIT 34.8 % (42.0-52.0); HEMOGLOBIN 10.9 g/dl (14.0-18.0); LYMPHOCYTES # 1.6 10^3/ul (0.8-2.9); MEAN CORPUSCULAR HEMOGLOBIN 29.9 pg (29.0-33.0); MEAN CORPUSCULAR HGB CONC 31.3 g/dl (32.0-37.0); MEAN CORPUSCULAR VOLUME 95.3 fl (82.0-101.0); MEAN PLATELET VOLUME 11.5 fl (7.4-10.4); MONOCYTE # 1.2 10^3/ul (0.3-0.9); MONOCYTES % 8.2 % (0.0-11.0); NEUTROPHIL # 11.7 10^3/ul (1.6-7.5); NUCLEATED RED BLOOD CELLS% 0.1 /100WBC (0.0-0.0); PLATELET COUNT 215 10^3/UL (140-415); RED BLOOD COUNT 3.65 10^6/ul (4.70-6.10); RED CELL DISTRIBUTION WIDTH 18.9 % (11.5-14.5)
[2017-08-23 06:27] LABS: WHITE BLOOD COUNT 14.8 10^3/ul (4.8-10.8)
[2017-08-23 06:52] LABS: ALANINE AMINOTRANSFERASE 52 IU/L (13-69); ALBUMIN 2.8 g/dl (3.3-4.9); ALKALINE PHOSPHATASE 129 IU/L (42-121); ANION GAP 18 (8-16); ASPARTATE AMINO TRANSFERASE 56 IU/L (15-46); BILIRUBIN,INDIRECT 0.7 mg/dl (0-1.1); BILIRUBIN,TOTAL 0.7 mg/dl (0.2-1.3); BLOOD UREA NITROGEN 25 mg/dl (7-20); CALCIUM 8.1 mg/dl (8.4-10.2); CARBON DIOXIDE 23 mmol/L (21-31); CHLORIDE 121 mmol/L (97-110); CREATININE 1.22 mg/dl (0.61-1.24); GLUCOSE 87 mg/dl (70-220); POTASSIUM 3.7 mmol/L (3.5-5.1); SODIUM 158 mmol/L (135-144); TOTAL PROTEIN 6.3 g/dl (6.1-8.1)
[2017-08-23 07:08] LABS: PHOSPHORUS 3.9 mg/dl (2.5-4.9)
[2017-08-23 07:08] LABS: MAGNESIUM 2.2 mg/dl (1.7-2.5)
[2017-08-23] MEDS: DEXTROSE 5% 1,000 ML IV (08:00)
[2017-08-23] MEDS: FERROUS SULFATE (EC) 325 MG TAB PO ×3 (08:44→21:00)
[2017-08-23] MEDS: FOLIC ACID 1 MG TAB PO (08:44)
[2017-08-23] MEDS: CLOPIDOGREL 75 MG TAB PO (08:44)
[2017-08-23] MEDS: METOPROLOL 25 MG TAB PO ×2 (08:44→21:00)
[2017-08-23] MEDS: MULTIVITAMINS THERAPEUTIC TAB PO (08:44)
[2017-08-23] MEDS: ESCITALOPRAM 10 MG TAB PO (08:44)
[2017-08-23] MEDS: BALSAM PERU/CASTOR OIL 60 GM TUBE TOP (08:45)
[2017-08-23] MEDS: ZINC SULFATE 220 MG CAP PO (08:45)
[2017-08-23] MEDS: COLLAGENASE 5 GM (UD JAR) TOP (08:45)
[2017-08-23] MEDS: ASCORBIC ACID 500 MG TAB PO (08:45)
[2017-08-23] MEDS: ALBUTEROL/IPRATROPIUM (NEB) 3 ML AMP HHN ×4 (08:50→20:32)
[2017-08-23] MEDS: MEROPENEM 500MG/50 ML (PMX) 50 ML IVPB ×2 (09:28→21:00)
[2017-08-23] MEDS: ENOXAPARIN 60 MG/0.6 ML SYG SC (09:30)
[2017-08-23] MEDS: morphine LIQ (20 MG/ML PO SYG) SL ×3 (09:45→21:00)
[2017-08-23] MEDS: VANCOMYCIN 1 GM 250 ML IVPB (18:05)
[2017-08-23] MEDS: ATORVASTATIN 80 MG TAB PO (21:00)
[2017-08-24] MEDS: DEXTROSE 5% 1,000 ML IV (04:00)
[2017-08-24] MEDS: PANTOPRAZOLE (EC) 40 MG TAB PO (05:21)
[2017-08-24 07:39] LABS: ADD MAN DIFF? NO
[2017-08-24 07:44] LABS: BASOPHILS % 0.2 % (0.0-2.0); EOSINOPHILS # 0.1 10^3/ul (0.0-0.5); EOSINOPHILS % 0.4 % (0.0-7.0); HEMATOCRIT 35.5 % (42.0-52.0); LYMPHOCYTES # 1.8 10^3/ul (0.8-2.9); LYMPHOCYTES % 12.1 % (15.0-51.0); MEAN CORPUSCULAR HEMOGLOBIN 29.5 pg (29.0-33.0); MEAN CORPUSCULAR VOLUME 95.2 fl (82.0-101.0); MEAN PLATELET VOLUME 11.5 fl (7.4-10.4); MONOCYTE # 1.3 10^3/ul (0.3-0.9); MONOCYTES % 8.6 % (0.0-11.0); NEUTROPHIL # 11.4 10^3/ul (1.6-7.5); NEUTROPHILS % 77.3 % (39.0-77.0); NUCLEATED RED BLOOD CELLS # 0.1 10^3/ul (0.0-0.0); NUCLEATED RED BLOOD CELLS% 0.4 /100WBC (0.0-0.0); PLATELET COUNT 218 10^3/UL (140-415); RED BLOOD COUNT 3.73 10^6/ul (4.70-6.10); RED CELL DISTRIBUTION WIDTH 18.8 % (11.5-14.5)
[2017-08-24 07:44] LABS: WHITE BLOOD COUNT 14.7 10^3/ul (4.8-10.8)
[2017-08-24 07:58] LABS: ANION GAP 15 (8-16); BLOOD UREA NITROGEN 28 mg/dl (7-20); CALCIUM 8.3 mg/dl (8.4-10.2); CARBON DIOXIDE 25 mmol/L (21-31); CHLORIDE 125 mmol/L (97-110); GLUCOSE 100 mg/dl (70-220); POTASSIUM 3.7 mmol/L (3.5-5.1)
[2017-08-24 07:59] LABS: PHOSPHORUS 3.7 mg/dl (2.5-4.9)
[2017-08-24 07:59] LABS: MAGNESIUM 2.4 mg/dl (1.7-2.5)
[2017-08-24 08:02] LABS: SODIUM 161 mmol/L (135-144)
[2017-08-24] MEDS: ALBUTEROL/IPRATROPIUM (NEB) 3 ML AMP HHN ×4 (08:19→20:07)
[2017-08-24] MEDS: FERROUS SULFATE (EC) 325 MG TAB PO ×3 (09:00→21:00)
[2017-08-24] MEDS: MULTIVITAMINS THERAPEUTIC TAB PO (09:00)
[2017-08-24] MEDS: FOLIC ACID 1 MG TAB PO (09:00)
[2017-08-24] MEDS: CLOPIDOGREL 75 MG TAB PO (09:00)
[2017-08-24] MEDS: METOPROLOL 25 MG TAB PO ×2 (09:00→21:00)
[2017-08-24] MEDS: MEROPENEM 500MG/50 ML (PMX) 50 ML IVPB (09:00)
[2017-08-24] MEDS: ESCITALOPRAM 10 MG TAB PO (09:00)
[2017-08-24] MEDS: ENOXAPARIN 60 MG/0.6 ML SYG SC (09:00)
[2017-08-24] MEDS: ASCORBIC ACID 500 MG TAB PO (09:00)
[2017-08-24] MEDS: BALSAM PERU/CASTOR OIL 60 GM TUBE TOP (09:00)
[2017-08-24] MEDS: morphine LIQ (20 MG/ML PO SYG) SL ×3 (09:00→21:00)
[2017-08-24] MEDS: ZINC SULFATE 220 MG CAP PO (09:00)
[2017-08-24] MEDS: COLLAGENASE 5 GM (UD JAR) TOP (16:50)
[2017-08-24] MEDS ORDERED: morphine LIQ (20 MG/ML PO SYG) SL (17:30)
[2017-08-24] MEDS ORDERED: PENDING SANTYL ORDER FOR WOUND CARE XX (17:30)
[2017-08-24] MEDS ORDERED: DIMETHICONE STICK TOP (17:30)
[2017-08-24] MEDS ORDERED: ONDANSETRON 4 MG INJ IV (17:30)
[2017-08-24] MEDS ORDERED: LORAZEPAM 1 MG TAB PO (17:30)
[2017-08-24 18:34] LABS: VANCOMYCIN,TROUGH 13.4 ug/ml (10.0-20.0)
[2017-08-24] MEDS: morphine LIQ (20 MG/ML PO SYG) PO (21:44)
[2017-08-24] MEDS: LORAZEPAM 2 MG INJ IV (23:42)
[2017-08-25] MEDS: morphine LIQ (20 MG/ML PO SYG) PO ×4 (01:00→13:15)
[2017-08-25] MEDS: morphine LIQ (10 MG/5 ML) CUP PO ×3 (01:49→12:22)
[2017-08-25] MEDS: LORAZEPAM 2 MG INJ IV ×4 (04:53→23:01)
[2017-08-25] MEDS: PANTOPRAZOLE (EC) 40 MG TAB PO (06:00)
[2017-08-25] MEDS: HYOSCYAMINE 0.125 MG SUBL TAB SL ×2 (08:40→23:01)
[2017-08-25] MEDS: BALSAM PERU/CASTOR OIL 60 GM TUBE TOP (09:00)
[2017-08-25] MEDS: ALBUTEROL/IPRATROPIUM (NEB) 3 ML AMP HHN ×3 (10:43→20:41)
[2017-08-25] MEDS: morphine LIQ (20 MG/ML PO SYG) SL ×4 (11:23→21:15)
[2017-08-25] MEDS ORDERED: morphine (DRIP) 100 MG/100 ML 100 ML IV (13:30)
[2017-08-25] MEDS ORDERED: ARTIFICIAL TEARS 15 ML OPH BOTH EYES (13:30)
[2017-08-25] MEDS: COLLAGENASE 5 GM (UD JAR) TOP (14:55)
[2017-08-26] MEDS: morphine LIQ (20 MG/ML PO SYG) SL ×6 (01:16→22:00)
[2017-08-26] MEDS: ALBUTEROL/IPRATROPIUM (NEB) 3 ML AMP HHN ×6 (01:22→20:13)
[2017-08-26] MEDS: BISACODYL 10 MG SUPP PR (03:13)
[2017-08-26] MEDS: ARTIFICIAL TEARS 15 ML OPH BOTH EYES ×2 (03:14→08:42)
[2017-08-26] MEDS: DIMETHICONE STICK TOP (03:14)
[2017-08-26] MEDS: HYOSCYAMINE 0.125 MG SUBL TAB SL ×4 (03:14→22:09)
[2017-08-26] MEDS: morphine 2 MG INJ IV ×2 (03:21→10:00)
[2017-08-26] MEDS: LORAZEPAM 2 MG INJ IV ×3 (06:10→22:02)
[2017-08-26] MEDS: BALSAM PERU/CASTOR OIL 60 GM TUBE TOP (08:37)
[2017-08-26] MEDS: COLLAGENASE 5 GM (UD JAR) TOP (08:37)
[2017-08-27] MEDS: ALBUTEROL/IPRATROPIUM (NEB) 3 ML AMP HHN ×6 (01:05→20:10)
[2017-08-27] MEDS: morphine LIQ (20 MG/ML PO SYG) SL ×6 (01:29→20:37)
[2017-08-27] MEDS: BALSAM PERU/CASTOR OIL 60 GM TUBE TOP ×2 (02:15→08:52)
[2017-08-27] MEDS: morphine 2 MG INJ IV (02:30)
[2017-08-27] MEDS: LORAZEPAM 2 MG INJ IV ×3 (05:10→21:41)
[2017-08-27] MEDS: COLLAGENASE 5 GM (UD JAR) TOP (08:53)
[2017-08-28] MEDS: ALBUTEROL/IPRATROPIUM (NEB) 3 ML AMP HHN ×5 (00:08→17:37)
[2017-08-28] MEDS: morphine LIQ (20 MG/ML PO SYG) SL ×5 (00:39→17:24)
[2017-08-28] MEDS: LORAZEPAM 2 MG INJ IV ×2 (06:22→14:18)
[2017-08-28] MEDS: COLLAGENASE 5 GM (UD JAR) TOP (09:08)
[2017-08-28] MEDS: BALSAM PERU/CASTOR OIL 60 GM TUBE TOP (09:08)
[2017-08-28] MEDS ORDERED: morphine LIQ (20 MG/ML PO SYG) SL (11:30)
== END 2017-08-28 23:20 | disposition expired ==
LOC: TEL 08-23 00:27 → MS1 08-25 01:00 → E/R 16:58 → MS4 19:03
DX: I11.0 Hypertensive heart disease with heart failure (principal); L89.153 Pressure ulcer of sacral region, stage 3; I21.4 Non-ST elevation (NSTEMI) myocardial infarction; J96.01 Acute respiratory failure with hypoxia; E43 Unspecified severe protein-calorie malnutrition; J69.0 Pneumonitis due to inhalation of food and vomit; G92 Toxic encephalopathy; R64 Cachexia; I70.262 Atherosclerosis of native arteries of extremities with gangrene, left leg; I50.33 Acute on chronic diastolic (congestive) heart failure; D63.8 Anemia in other chronic diseases classified elsewhere; Z68.23 Body mass index [BMI] 23.0-23.9, adult; F01.50 Vascular dementia, unspecified severity, without behavioral disturbance, psychotic disturbance, mood disturbance, and anxiety; Z72.0 Tobacco use; D49.4 Neoplasm of unspecified behavior of bladder; R13.10 Dysphagia, unspecified; I48.91 Unspecified atrial fibrillation; Z78.1 Physical restraint status; R31.9 Hematuria, unspecified; Z74.01 Bed confinement status; I70.221 Atherosclerosis of native arteries of extremities with rest pain, right leg; Z66 Do not resuscitate
CPT/HCPCS: 36415; 36600; 71045; 80048; 80053; 80061; 80202; 82550; 82553; 82803; 83036; 83605; 83735; 83880; 84100; 84439; 84443; 84484; 85025; 85610; 85730; 87040; 92610; 93005; 93306; 94640; 94664; 96372; 96374; 96375; 96376; 99291-25